=== PATIENT | female | born 1955 | race Hispanic/Latino ===

== ENCOUNTER 2019-04-03 10:59 | Inpatient (IN) | payer BC ==
[~2019-04-03] VITALS: Ht 154.9 cm; Wt 77.1 kg
[~2019-04-03 10:59] MED LIST: BENTYL10 MG PO; ULTRAM 50MG50 MG PO; ZOFRAN ODT4 MG PO
[2019-04-03] MEDS ORDERED: HYDRALAZINE HCL 20 MG/ML VIAL IV ONE (11:30)
[2019-04-03 11:56] LABS: BASOPHILS # (AUTO) 0.1 (0.0-0.1); EOSINOPHILS % 0.5 % (0.0-6.0); HEMATOCRIT 46.3 % (34.2-44.1); HEMOGLOBIN 15.2 g/dL (12.0-16.0); LYMPHOCYTES # (AUTO) 1.3 (1.0-3.2); LYMPHOCYTES % 15.6 % (18.0-39.1); MEAN CORPUSCULAR HEMOGLOBIN 27.8 pg (28-32); MEAN CORPUSCULAR HGB CONC 32.8 g/dL (31-35); MEAN CORPUSCULAR VOLUME 84.8 fL (81-99); MONOCYTES # (AUTO) 0.4 (0.2-0.8); MONOCYTES % 4.5 % (4.4-11.3); NEUTROPHILS # (AUTO) 6.4 (2.1-6.9); PLATELET COUNT 222 x10e3/uL (140-360); RED BLOOD COUNT 5.46 x10e6/uL (3.6-5.1); RED CELL DISTRIBUTION WIDTH 12.7 % (11.7-14.4)
[2019-04-03 12:15] LABS: BACTERIA,URINE RARE /HPF; EPITHELIAL CELLS,URINE RARE /LPF; WBC,URINE (MAN) 0-5 /HPF (0-5)
[2019-04-03 12:19] LABS: ALANINE AMINOTRANSFERASE 15 IU/L (0-55); ALBUMIN 3.7 g/dL (3.5-5.0); ALKALINE PHOSPHATASE 125 IU/L (40-150); ANION GAP 15.7 mmol/L (8-16); BLOOD UREA NITROGEN 12 mg/dL (7-26); BUN/CREATININE RATIO 16 (6-25); CALCIUM 9.5 mg/dL (8.4-10.2); CARBON DIOXIDE 24 mmol/L (22-29); CHLORIDE 104 mmol/L (98-107); CREATININE, SERUM 0.74 mg/dL (0.57-1.11); EST GLOMERULAR FILTRATION RATE > 60 ML/MIN (60-); GLUCOSE 99 mg/dL (74-118); POTASSIUM 3.7 mmol/L (3.5-5.1); SODIUM 140 mmol/L (136-145)
[2019-04-03 12:21] LABS: BILIRUBIN,URINE NEGATIVE (NEGATIVE); CLARITY,URINE CLEAR (CLEAR); COLOR,URINE YELLOW (YELLOW); KETONES,URINE NEGATIVE (NEGATIVE); LEUKOCYTE ESTERASE ,URINE NEGATIVE (NEGATIVE); NITRITE,URINE NEGATIVE (NEGATIVE); PROTEIN,URINE DIPSTICK NEGATIVE (NEGATIVE); URINE UROBILINOGEN 0.2 mg/dL (0.2 - 1)
--- NOTE | 2019-04-03 12:33 | Diagnostic Imaging Report ---
EXAMINATION: CHEST SINGLE (PORTABLE) INDICATION: Chest pain COMPARISON: None FINDINGS: LINES/TUBES:EKG leads overlie the chest. LUNGS:The lungs are well-inflated. Mild bibasilar subsegmental atelectasis. PLEURA:No pleural effusion or pneumothorax. MEDIASTINUM:The cardiomediastinal silhouette appears normal in size and shape. BONES/SOFT TISSUES:No acute osseous injury. ABDOMEN:No free air under the diaphragm. IMPRESSION: Mild bibasilar subsegmental atelectasis. No focal pneumonia or pulmonary edema. Signed by: Gianluca Sauer MD on 04/03/2019 12:30 PM
--- NOTE | 2019-04-03 12:34 | Diagnostic Imaging Report ---
CT BRAIN WO HISTORY: Left arm weakness and slurred speech COMPARISON: None. TECHNIQUE: Noncontrast axial scans were obtained from skull base to the vertex. Coronal and sagittal reconstructions obtained from the axial data. One or more of the following dose reduction techniques were used: Automated exposure control, adjustment of the mA and/or kV according to patient size, and/or utilization of iterative reconstruction technique. DISCUSSION: Scalp/Skull: Unremarkable. Brain sulci: Appropriate for patient's age. Ventricles: Normal in size and configuration. No hydrocephalus. Extra-axial spaces: No masses or fluid collections. Parenchyma: Small focal hypodensity in the right centrum semiovale could be due to age indeterminate ischemia. Otherwise, no mass, hemorrhage, or large vascular territory acute infarct. Dural sinuses: No abnormal densities. Sellar/Suprasellar region: Intact. Skull base: Intact. Incidental findings: Mild carotid siphon calcifications are present. IMPRESSION: 1. Focal hypodensity in the right centrum semiovale could be due to age indeterminate ischemia. 2. Otherwise, no acute intracranial abnormalities. Signed by: Dr. Nehemiah Blanca M.D. on 04/03/2019 12:31 PM
[2019-04-03 12:39] LABS: CHOL/HDL RATIO 3.5 (3.0-3.6)
[2019-04-03] MEDS ORDERED: HYDRALAZINE HCL 20 MG/ML VIAL IV STA (12:51)
[2019-04-03] MEDS ORDERED: ASPIRIN 325 MG TAB PO ONE (13:00)
[2019-04-03] MEDS ORDERED: HYDRALAZINE HCL 20 MG/ML VIAL IV PRN (13:00)
[2019-04-03] MEDS ORDERED: ONDANSETRON HCL INJ 2MG/ML 2ML 2 MG/ML VIAL IV PRN (13:00)
[2019-04-03] MEDS ORDERED: SODIUM CHLORIDE FLUSH 10 ML SYR INJ PRN (13:00)
[2019-04-03] MEDS: SODIUM CHLORIDE 0.9% 1000ML 1,000 ML IV SCH (13:21)
[2019-04-03] MEDS ORDERED: BROMPHENIR-PSE118 ML (14:18)
[2019-04-03] MEDS ORDERED: LOPRESSOR25 MG (14:18)
[2019-04-03] MEDS ORDERED: LOSARTAN POTASS50 MG (14:18)
--- NOTE | 2019-04-03 14:18 | NUR ---
MED REC REVIEWED WITH PT
[2019-04-03] MEDS ORDERED: GADOBENATE DIMEGLUMINE 1 ML IV ONE (14:21)
[2019-04-03] MEDS ORDERED: ACETAMINOPHEN 325 MG TAB PO ONE (14:30)
--- NOTE | 2019-04-03 18:42 | Diagnostic Imaging Report ---
History: Left-sided weakness, slurred speech Comparison studies: Head CT on 04/03/2019 Technique: Pre-contrast: Sagittal T2; axial T1-IR, SWI, DWI, T2 FLAIR Post-contrast: Axial, coronal and sagittal T1. Intravenous contrast: 16 cc of MultiHance Findings: Scalp: No abnormal signal. No masses. Bone marrow: Normal in signal intensity. Extra-axial: No masses, fluid collections or hemorrhage. Brain sulci: Appropriate for age. Ventricles: Normal in size . No hydrocephalus. Parenchyma: 1 cm acute nonhemorrhagic lacunar insults and vague restricted diffusion between them centered in the right deep frontal centrum semiovale correlate with the provided history of left weakness. No additional acute vascular insults. Vascular enhancement (due to stagnation of contrast) along the right convexity, given patient's symptoms, raises the possibility of a stenosing lesion in the right MCA territory (series 7, image 12 and series 8, image 12). Multiple, scattered, nonenhancing T2 FLAIR hyperintense foci in the supratentorial white matter are nonspecific small vessel ischemic changes. No masses, hemorrhage, or chronic vascular insults. Suprasellar region: No abnormalities. Craniocervical junction: No abnormalities. Patent foramen magnum. No Chiari one malformation.. Vessels: Normal flow-voids in the arteries and sinuses. IMPRESSION: 1. Focal nonhemorrhagic lacunar insults in the right centrum semiovale white matter may be insufficiency related. They correlate with the provided history of left weakness. Vascular enhancement along the right convexity raises the possibility of a stenosing lesion in the right MCA vascular territory (series 7, image 12, series 8, image 12). Recommend cervical and intracranial CTA for further evaluation. 2. No additional acute abnormalities. 3. Superimposed nonspecific mild supratentorial white matter small vessel ischemic changes. 4. Findings discussed with Dr. Nicolas on 04/03/2019 at 0638 hours Signed by: Dr. Daryl Grayson M.D. on 04/03/2019 6:39 PM
--- NOTE | 2019-04-03 20:33 | NUR ---
Call placed for Dr Simi Aldrich, patient requesting medication for sleep
[2019-04-03 20:48] VITALS: BP 166/97
--- NOTE | 2019-04-03 20:57 | NUR ---
Dr Simi Aldrich returned call, orders received
[2019-04-03] MEDS ORDERED: ZOLPIDEM TARTRATE 5 MG TAB PO ONE (21:00)
--- NOTE | 2019-04-03 21:05 | Diagnostic Imaging Report ---
History: Workup of acute infarct seen on same day brain MRI. Comparison studies:Brain MRI 04/03/2019. Technique: Axial images were obtained from the thoracic inlet. Coronal and sagittal images reconstructed from the axial data. Multiplanar MIP and volume rendered 3-D images of the [place] and carotid bulbs/carotid bifurcations were reformatted from the axial source data. Dose modulation, iterative reconstruction, and/or weight based adjustment of the mA/kV was utilized to reduce the radiation dose to as low as reasonably achievable. Intravenous contrast: 100 cc of Isovue-370. Findings: Neck CTA: If present, stenosis is calculated utilizing the NASCET method which calculates the degree of stenosis with reference to the normal lumen of the carotid artery distal to the stenosis. Aortic arch and origins of the great vessels: Mild scattered calcified plaque in the arch and at the origin of the right brachiocephalic trunk without stenosis. Common carotid arteries: Patent bilaterally and mildly tortuous without filling defects or stenosis. Carotid bulbs: Patent bilaterally with no (0%) stenosis by NASCET criteria. Mild nonstenotic calcified and soft plaque on the right. Internal carotid arteries: Patent and mildly tortuous bilaterally without filling defect or stenosis. Left internal carotid artery is slightly smaller than the left Vertebral arteries: Patent, no filling defect or stenosis. Intracranial CTA: Anterior circulation: No aneurysm or arterial vascular malformation identified. Internal carotid arteries: Moderate scattered calcified plaque throughout the bilateral cavernous and paraophthalmic segments without significant stenosis. The left internal carotid artery is congenitally smaller than the right. Middle cerebral arteries: The proximal right M1 MCA is occluded for a 5 mm segment. There is reconstituted flow via collaterals distally within the right MCA territory. Specifically, there is reconstituted flow within the distal right M1 MCA and right M2 MCA branches are also patent distal to the occlusion. Patent, no proximal branch occlusion or stenosis on the left. Anterior cerebral arteries: Patent, no proximal branch occlusion or stenosis. The left A1 segment is congenitally smaller than the right. Posterior circulation: Vertebral arteries: Patent bilaterally without filling defect or stenosis. Basilar artery: Patent without filling defect or stenosis. Posterior cerebral arteries: Patent, no proximal branch occlusion or stenosis. The right P1 segment is hypoplastic in the right PIPE STEM ALIGNER is supplied by a prominent right posterior communicating artery (right PIPE STEM ALIGNER origin). Anatomical variants: Anterior cerebral arteries: Hypoplastic left A1 segment. Acom: Patent. Pcoms: Right PIPE STEM ALIGNER origin. Not visualized on the left. Vertebral arteries: Left is dominant. Cervical spine: Minimal anterolisthesis of C4 on C5 and retrolisthesis of C5 on C6. Moderately degenerated C5-C6 and C6-C7 discs with disc osteophyte complexes which indent the thecal sac but do not result significant canal stenosis. Moderate multilevel facet arthrosis. Multilevel uncovertebral facet arthrosis result in multilevel foraminal stenosis which is moderate on the right at C3-C4, mild left at C4-C5, severe left and moderate right at C5-C6 and moderate left and mild right at C6-C7. Incidental findings: Calcified 3 mm right upper lobe granuloma. Dental caries with multifocal periodontal disease. IMPRESSION: Neck CTA 1. Patent carotid and vertebral arteries without stenosis. 2. No (0%) stenosis at the carotid bulbs bilaterally. Mild nonstenotic calcified plaque in the right carotid bulb. Intracranial CTA: 1. Proximal segmental right M1 MCA occlusion with good intact collateral circulation and reconstituted flow present distally within the M1 MCA beyond the occluded segment. 2. Calcified atherosclerosis in the carotid siphons without significant stenosis. Findings discussed with Dr. Macias at 9:00 PM on 04/03/2019 Signed by: Dr. Efrain Crum M.D. on 04/03/2019 9:02 PM
--- NOTE | 2019-04-03 21:05 | Diagnostic Imaging Report ---
History: Workup of acute infarct seen on same day brain MRI. Comparison studies:Brain MRI 04/03/2019. Technique: Axial images were obtained from the thoracic inlet. Coronal and sagittal images reconstructed from the axial data. Multiplanar MIP and volume rendered 3-D images of the [place] and carotid bulbs/carotid bifurcations were reformatted from the axial source data. Dose modulation, iterative reconstruction, and/or weight based adjustment of the mA/kV was utilized to reduce the radiation dose to as low as reasonably achievable. Intravenous contrast: 100 cc of Isovue-370. Findings: Neck CTA: If present, stenosis is calculated utilizing the NASCET method which calculates the degree of stenosis with reference to the normal lumen of the carotid artery distal to the stenosis. Aortic arch and origins of the great vessels: Mild scattered calcified plaque in the arch and at the origin of the right brachiocephalic trunk without stenosis. Common carotid arteries: Patent bilaterally and mildly tortuous without filling defects or stenosis. Carotid bulbs: Patent bilaterally with no (0%) stenosis by NASCET criteria. Mild nonstenotic calcified and soft plaque on the right. Internal carotid arteries: Patent and mildly tortuous bilaterally without filling defect or stenosis. Left internal carotid artery is slightly smaller than the left Vertebral arteries: Patent, no filling defect or stenosis. Intracranial CTA: Anterior circulation: No aneurysm or arterial vascular malformation identified. Internal carotid arteries: Moderate scattered calcified plaque throughout the bilateral cavernous and paraophthalmic segments without significant stenosis. The left internal carotid artery is congenitally smaller than the right. Middle cerebral arteries: The proximal right M1 MCA is occluded for a 5 mm segment. There is reconstituted flow via collaterals distally within the right MCA territory. Specifically, there is reconstituted flow within the distal right M1 MCA and right M2 MCA branches are also patent distal to the occlusion. Patent, no proximal branch occlusion or stenosis on the left. Anterior cerebral arteries: Patent, no proximal branch occlusion or stenosis. The left A1 segment is congenitally smaller than the right. Posterior circulation: Vertebral arteries: Patent bilaterally without filling defect or stenosis. Basilar artery: Patent without filling defect or stenosis. Posterior cerebral arteries: Patent, no proximal branch occlusion or stenosis. The right P1 segment is hypoplastic in the right ELECTRONIC SCALE TESTER is supplied by a prominent right posterior communicating artery (right ELECTRONIC SCALE TESTER origin). Anatomical variants: Anterior cerebral arteries: Hypoplastic left A1 segment. Acom: Patent. Pcoms: Right ELECTRONIC SCALE TESTER origin. Not visualized on the left. Vertebral arteries: Left is dominant. Cervical spine: Minimal anterolisthesis of C4 on C5 and retrolisthesis of C5 on C6. Moderately degenerated C5-C6 and C6-C7 discs with disc osteophyte complexes which indent the thecal sac but do not result significant canal stenosis. Moderate multilevel facet arthrosis. Multilevel uncovertebral facet arthrosis result in multilevel foraminal stenosis which is moderate on the right at C3-C4, mild left at C4-C5, severe left and moderate right at C5-C6 and moderate left and mild right at C6-C7. Incidental findings: Calcified 3 mm right upper lobe granuloma. Dental caries with multifocal periodontal disease. IMPRESSION: Neck CTA 1. Patent carotid and vertebral arteries without stenosis. 2. No (0%) stenosis at the carotid bulbs bilaterally. Mild nonstenotic calcified plaque in the right carotid bulb. Intracranial CTA: 1. Proximal segmental right M1 MCA occlusion with good intact collateral circulation and reconstituted flow present distally within the M1 MCA beyond the occluded segment. 2. Calcified atherosclerosis in the carotid siphons without significant stenosis. Findings discussed with Dr. Macias at 9:00 PM on 04/03/2019 Signed by: Dr. Efrain Crum M.D. on 04/03/2019 9:02 PM
[2019-04-03 21:49] LABS: PLATELET ESTIMATE ADEQUATE; PLATELET MORPHOLOGY COMMENT RARE EDTA CLUMPING; RBC MORPHOLOGY COMMENT NORMAL
[2019-04-03 22:24] VITALS: BP 174/57
[2019-04-03] MEDS ORDERED: SODIUM CHLORIDE 0.9% 100 ML ONE (23:17)
[2019-04-03] MEDS ORDERED: IOPAMIDOL 370 MG/ML 200 ML INFUS..BTL INJ ONE (23:17)
[2019-04-04] VITALS: BP 148/78
[2019-04-04] MEDS: SODIUM CHLORIDE 0.9% 1000ML 1,000 ML IV SCH ×2 (00:55→12:24)
--- NOTE | 2019-04-04 01:18 | History and Physical ---
This is a 64-year-old female patient presented to the emergency room with the high blood pressure. HISTORY OF PRESENT ILLNESS: Ms. Lucretia Carr is a 64-year-old female patient, who presented to the emergency room with the complaint of high blood pressure AND _ left side weakness. The patient was recently seen by as outpatient and blood pressure medicine was adjusted and ALSO [facility] emergency room. FOR TIA PAST MEDICAL HISTORY: Hypertension and hyperlipidemia. ALLERGIES: THE PATIENT IS ALLERGIC TO CODEINE AND HYDROCODONE. SOCIAL HISTORY: Denies smoking. Denies using alcohol. MEDICATIONS: The patient was on hydrocodone, metoprolol, and losartan. FAMILY HISTORY: Hypertension. REVIEW OF SYSTEMS: Multisystem review of system examination has been done. PHYSICAL EXAMINATION: T 98 , BP 170 /98 . RR 18 P 87 GENERAL: _NC , AT HEART: S1 and S2. Irregular. No murmur. ABDOMEN: Soft. Bowel sounds are present. NEUROLOGIC: LT SIDE WEAKNESS ADMITTING IMPRESSION/DIAGNOSES: CVA , ACCELERATED hypertension, transient ischemic attack, and possible right middle cerebral artery ischemic cerebrovascular accident, hyperlipidemia. PLAN: _ADMIT TO IMCU , ASA , LIPITOR , NUERO CONSULT AND WATCH . MRI has been done and we reviewed the report. MD CATHY Padilla/ROXANA /[id number] MTDD
[2019-04-04 03:15] VITALS: BP 136/83
[2019-04-04 04:00] VITALS: BP 110/75
[2019-04-04 06:22] LABS: BASOPHILS % 0.6 % (0.0-1.0); EOSINOPHILS % 0.3 % (0.0-6.0); HEMATOCRIT 42.5 % (34.2-44.1); HEMOGLOBIN 13.9 g/dL (12.0-16.0); LYMPHOCYTES # (AUTO) 1.1 (1.0-3.2); LYMPHOCYTES % 15.8 % (18.0-39.1); MEAN CORPUSCULAR HGB CONC 32.7 g/dL (31-35); MEAN CORPUSCULAR VOLUME 85.5 fL (81-99); MONOCYTES # (AUTO) 0.4 (0.2-0.8); MONOCYTES % 4.9 % (4.4-11.3); NEUTROPHILS # (AUTO) 5.6 (2.1-6.9); NEUTROPHILS % 77.8 % (38.7-80.0); PLATELET COUNT 306 x10e3/uL (140-360); RED BLOOD COUNT 4.97 x10e6/uL (3.6-5.1); RED CELL DISTRIBUTION WIDTH 12.8 % (11.7-14.4)
[2019-04-04 06:39] LABS: INR 0.85; PROTHROMBIN TIME 12.1 seconds (11.9-14.5)
[2019-04-04 06:46] LABS: ALANINE AMINOTRANSFERASE 14 IU/L (0-55); ALBUMIN 3.3 g/dL (3.5-5.0); ALBUMIN/GLOBULIN RATIO 1.1 (0.8-2.0); ALKALINE PHOSPHATASE 111 IU/L (40-150); ANION GAP 11.6 mmol/L (8-16); BLOOD UREA NITROGEN 10 mg/dL (7-26); BUN/CREATININE RATIO 15 (6-25); CARBON DIOXIDE 23 mmol/L (22-29); CHLORIDE 107 mmol/L (98-107); CREATININE, SERUM 0.67 mg/dL (0.57-1.11); EST GLOMERULAR FILTRATION RATE > 60 ML/MIN (60-); GLUCOSE 111 mg/dL (74-118); POTASSIUM 3.6 mmol/L (3.5-5.1); SODIUM 138 mmol/L (136-145)
[2019-04-04] MEDS ORDERED: ASPIRIN 325 MG TAB PO SCH (09:00)
[2019-04-04] MEDS ORDERED: CLOPIDOGREL BISULFATE 75 MG TAB PO SCH (09:00)
[2019-04-04] MEDS ORDERED: METOPROLOL TARTRATE 25 MG TAB PO SCH (09:00)
[2019-04-04] MEDS ORDERED: OLMESARTAN MEDOXOMIL 5 MG TABLET PO SCH (09:00)
--- NOTE | 2019-04-04 09:16 | Consultation ---
DATE OF CONSULTATION: 04/04/2019 CHIEF COMPLAINT: Left upper extremity motor neuron facial weakness. The patient had sudden onset of in the morning, presented to the emergency room, by afternoon was outside of the tPA window. She has a history of hypertension. She is a 64-year-old female was asked to come in by her coworkers weakness. SOCIAL HISTORY: No tobacco, alcohol, or drugs. FAMILY HISTORY: Hypertension. No history of diabetes. PHYSICAL EXAMINATION: VITAL SIGNS: Blood pressure is 140s/60s, heart rate is 87 and regular. She is afebrile at 98.2. HEENT: Extraocular muscles intact motor neuron facial weakness. Speech is dysarthric. There is no nuchal rigidity. EXTREMITIES: Left upper extremity and left lower extremity; left upper extremity is 3-to 2/5. Left lower extremity is 3/5. Her right side are 5/5 upper and lower. She is not ataxic and she has had some degree of hemineglect on the left side. ABDOMEN: Soft and nontender. CARDIOVASCULAR: Regular rate and rhythm. LUNGS: Clear to auscultation ASSESSMENT AND PLAN: I am seeing Ms. Carr for stroke MRI, carotid Duplex, echocardiogram. She was outside of a tPA window evaluation before discharge. I will also recommend Cardiology consultation. JULIOCESAR PATEL MD RR/MODL /[id number]
--- NOTE | 2019-04-04 09:25 | NUR ---
AT APPROX. 0915, PT NOTED WITH PROMINANT L. SIDE FACIAL DROOP, DEFICIT IN L. LEG STRENGTH AND L. ARM; INFORMATION REPORT TO DR. Tawnya SCHERER, BRAIN CT ORDERED AND PATIENT TRANSPORTED BY [facility]
--- NOTE | 2019-04-04 11:04 | Diagnostic Imaging Report ---
CT BRAIN WO HISTORY: Facial droop COMPARISON: CT, CTA head and MRI brain 04/03/2019 TECHNIQUE: Noncontrast axial scans were obtained from skull base to the vertex. Coronal and sagittal reconstructions obtained from the axial data. One or more of the following dose reduction techniques were used: Automated exposure control, adjustment of the mA and/or kV according to patient size, and/or utilization of iterative reconstruction technique. DISCUSSION: Scalp/Skull: Unremarkable. Brain sulci: Appropriate for patient's age. Ventricles: Normal in size and configuration. No hydrocephalus. Extra-axial spaces: No masses or fluid collections. Parenchyma: Hypodensity in the right centrum semiovale, more conspicuous than on previous examination, related to evolving subacute infarct. Otherwise, no mass, hemorrhage, or large vascular territory acute infarct. Dural sinuses: No abnormal densities. Sellar/Suprasellar region: Intact. Skull base: Intact. Incidental findings: Mild carotid siphon calcifications are present. IMPRESSION: 1. Evolving subacute infarct at the right centrum semiovale ovale, more conspicuous than on previous examination, no hemorrhage, midline shift or herniation. 2. No large cortical-based infarct. Signed by: DR Barak Santiago M.D. on 04/04/2019 11:01 AM
--- NOTE | 2019-04-04 13:30 | NUR ---
FAMILY NOW REQUESTING TRANSFER TO [facility] VS [facility]; TRANSFER TO [facility] INITIATED BY DR. GUARDADO
--- NOTE | 2019-04-04 14:12 | NUR ---
[facility] ACCEPTED PATIENT @1410; TRANSPORTED INITIATED AT 1317; [facility] ACCEPTED, DR. COATES ADMITTING; [facility] REPORT [phone], FAX [phone] ROOM [id number]
--- NOTE | 2019-04-04 14:18 | NUR ---
LEFT MESSAGE WITH DR. LEAL OFFICE INFORMING OF PATIENT FAMILY REQUEST TO GO TO [facility]
--- NOTE | 2019-04-04 16:17 | NUR ---
REPORT CALLED TO RAQUEL BALDERAS AT [facility]; ROOM 2250;
[2019-04-04] MEDS ORDERED: ATORVASTATIN 40 MG TAB PO SCH (21:00)
--- OUTSIDE RECORDS SUMMARY | 2019-04-07 12:50 | XMS REPORT ---
Author [facility] Address Unknown Phone Unavailable Care Team Providers Care Gut Dropper Name Role Phone RICK CANTOR Unavailable Unavailable Julia LEAL Unavailable Unavailable Payers Payer Name Policy Type Policy Number Effective Date Expiration Date Problems This patient has no known problems. Allergies, Adverse Reactions, Alerts Allergy Name Allergy Type Status Severity Reaction(s) Onset Date Inactive Date Treating Clinician Comments No Known Allergies DA Active U 2019-03-11 00:00:00 No Known Drug Intolerances DA Active U 2008-09-29 00:00:00 Medications This patient has no known medications. Results Test Description Test Time Test Comments Text Results Atomic Results Result Comments BASIC METABOLIC PANEL 2019-04-07 06:47:00 SODIUM (BEAKER) (test oirz=225) 140 meq/L 136-145 POTASSIUM (BEAKER) (test bsnt=084) 3.8 meq/L 3.5-5.1 CHLORIDE (BEAKER) (test jyex=581) 110 meq/L 98-107 CO2 (BEAKER) (test gvhi=570) 20 meq/L 22-29 BLOOD UREA NITROGEN (BEAKER) (test dbfk=625) 12 mg/dL 7-21 CREATININE (BEAKER) (test atxm=983) 0.61 mg/dL 0.57-1.25 GLUCOSE RANDOM (BEAKER) (test baea=021) 73 mg/dL 70-105 CALCIUM (BEAKER) (test imcc=004) 8.5 mg/dL 8.4-10.2 EGFR (BEAKER) (test uhcy=2644) INSUFFICIENT CLINICAL DATA TO CALCULATE ESTIMATED GFR. CBC (HEMOGRAM ONLY)2019-04-07 05:55:00* Test Item Value Reference Range Comments WHITE BLOOD CELL COUNT (BEAKER) (test neow=528) 6.5 K/ L 3.5-10.5 RED BLOOD CELL COUNT (BEAKER) (test ngre=025) 4.96 M/ L 3.93-5.22 HEMOGLOBIN (BEAKER) (test koux=197) 14.1 GM/DL 11.2-15.7 HEMATOCRIT (BEAKER) (test rwao=809) 42.7 % 34.1-44.9 MEAN CORPUSCULAR VOLUME (BEAKER) (test nqdl=809) 86.1 fL 79.4-94.8 MEAN CORPUSCULAR HEMOGLOBIN (BEAKER) (test nnqs=956) 28.4 pg 25.6-32.2 MEAN CORPUSCULAR HEMOGLOBIN CONC (BEAKER) (test rgul=242) 33.0 GM/DL 32.2-35.5 RED CELL DISTRIBUTION WIDTH (BEAKER) (test rrsa=514) 12.6 % 11.7-14.4 PLATELET COUNT (BEAKER) (test mqgy=040) 263 K/CU MM 150-450 MEAN PLATELET VOLUME (BEAKER) (test fwgn=446) 10.1 fL 9.4-12.3 NUCLEATED RED BLOOD CELLS (BEAKER) (test xshy=010) 0 /100 WBC 0-0 POCT-GLUCOSE [id number] 17:23:00* Test Item Value Reference Range Comments POC-GLUCOSE METER (BEAKER) (test ayny=8798) 82 mg/dL 70-110 : TESTED AT [address], [address]: Director Of Acquisition Marketing/Model Maker Apprentice [id number] for TSEGGAI, TSIGHEREDA POCT-GLUCOSE [id number] 12:04:00* Test Item Value Reference Range Comments POC-GLUCOSE METER (BEAKER) (test ucrx=1857) 84 mg/dL 70-110 : TESTED AT [address], [address]: Director Of Acquisition Marketing/Model Maker Apprentice [id number] for TSEGGAI, TSIGHEREDA POCT-GLUCOSE [id number] 11:07:00* Test Item Value Reference Range Comments POC-GLUCOSE METER (BEAKER) (test xzkt=4019) 79 mg/dL 70-110 : TESTED AT [address], [address]: Director Of Acquisition Marketing/Model Maker Apprentice [id number] for ALIYA PALOMINO POCT-GLUCOSE [id number] 18:15:00* Test Item Value Reference Range Comments POC-GLUCOSE METER (SHALA) (test yxbc=3647) 74 mg/dL 70-110 : TESTED AT [facility] [address] [facility], [address]: Director Of Acquisition Marketing/Model Maker Apprentice [id number] for DRU DARDEN, CTANGIO [id number] 16:40:00FINAL REPORT CLINICAL HISTORY: Neuro deficit, acute, stroke suspected TECHNIQUE: Initially, noncontrast head CT images were performed. Contiguous contrast-enhanced axial images through the neck followed by axial images through the head with coronal and sagittal reformations to assess the arterial circulation. 3-D reconstructions were performed using a volume rendered technique separately on a workstation. This exam was performed according to the departmental dose optimization program which includes automated exposure control, adjustment of the mA and/or kV according to the patient size, and/or use of an iterative reconstruction technique. Stenosis evaluation reported in compliance with NASCET criteria. COMPARISON: Outside noncontrast CT head 04/04/2019 FINDINGS: CTA head:Interval loss of pozo-white differentiation over a large region of the rig ht MCA territory. No hemorrhagic conversion. There is no hydrocephalus or midlin e shift. The skull is intact. Complete occlusion of the right MCA at the proxim al M1 segment. Distal branches are reconstituted from collaterals, with overall mildly decreased opacification on the right compared to left. Bilateral ACAs, le ft MCA, and bilateral farmer tree fruit and nut crops are unremarkable. There is a prominent right-sided P- comm. The major intradural venous sinuses are patent. CTA neck:Great vessel catracho gins: No occlusion or high-grade stenosis. Carotid arteries: No occlusion or hig h-grade stenosis. Vertebral arteries: No occlusion or high-grade stenosis. Mild degenerative changes of the cervical spine. Cervical soft tissues are unremarka ble. Visualized lung apices are clear. IMPRESSION:1.Large right MCA territory acute infarct without hemorrhagic conversion.2.Proximal right M1 occlusion. Col lateral flow in the distal branches with overall mildly decreased vascularity on the right compared to left MCA territories. These findings were discussed with the neurology resident on Neurology floor team on 04/05/2019 4:35 PM. Signed: Emely Robertson Verified Date/Time: 04/05/2019 16:40:37 , CAROTID, ANGIO 2019-04-05 16:40:00FINAL REPORT CLINICAL HISTORY: Neuro deficit, acute, stroke suspected TECHNIQUE: Initially, noncontrast head CT images were performed. Contiguous contrast-enhanced axial images through the neck followed by axial images through the head with coronal and sagittal reformations to assess the arterial circulation. 3-D reconstructions were performed using a volume rendered technique separately on a workstation. This exam was performed according to the departmental dose optimization program which includes automated exposure control, adjustment of the mA and/or kV according to the patient size, and/or use of an iterative reconstruction technique. Stenosis evaluation reported in compliance with NASCET criteria. COMPARISON: Outside noncontrast CT head 04/04/2019 FINDINGS: CTA head:Interval loss of pozo-white differentiation over a large region of the right MCA territory. No hemorrhagic conversion. There is no hydrocephalus or midline shift. The skull is intact. Complete occlusion of the right MCA at the proximal M1 segment. Distal branches are reconstituted from collaterals, with overall mildly decreased opacification on the right compared to left. Bilateral ACAs, left MCA, and bilateral farmer tree fruit and nut crops are unremarkable. There is a prominent right-sided P-comm. The major intradural venous sinuses are patent. CTA neck:Great vessel origins: No occlusion or high- grade stenosis. Carotid arteries: No occlusion or high-grade stenosis. Vertebral arteries: No occlusion or high-grade stenosis. Mild degenerative changes of the cervical spine. Cervical soft tissues are unremarkable. Visualized lung apices are clear. IMPRESSION:1.Large right MCA territory acute infarct without hemorrhagic conversion.2.Proximal right M1 occlusion. Col lateral flow in the distal branches with overall mildly decreased vascularity on the right compared to left MCA territories. These findings were discussed with the neurology resident on Neurology floor team on 04/05/2019 4:35 PM. Signed: padmaja Emely MDReport Verified Date/Time: 04/05/2019 16:40:37 [id number] 08:59:00* Test Item Value Reference Range Comments RPR SCREEN (BEAKER) (test ccbb=455) Nonreactive Nonreactive CBC W/PLT COUNT & AUTO [id number] 06:17:00* Test Item Value Reference Range Comments WHITE BLOOD CELL COUNT (BEAKER) (test bpvp=529) 6.6 K/ L 3.5-10.5 RED BLOOD CELL COUNT (BEAKER) (test vbyb=421) 5.09 M/ L 3.93-5.22 HEMOGLOBIN (BEAKER) (test iojp=231) 14.2 GM/DL 11.2-15.7 HEMATOCRIT (BEAKER) (test mmag=043) 44.5 % 34.1-44.9 MEAN CORPUSCULAR VOLUME (BEAKER) (test zfcq=468) 87.4 fL 79.4-94.8 MEAN CORPUSCULAR HEMOGLOBIN (BEAKER) (test cotv=629) 27.9 pg 25.6-32.2 MEAN CORPUSCULAR HEMOGLOBIN CONC (BEAKER) (test dmkd=124) 31.9 GM/DL 32.2-35.5 RED CELL DISTRIBUTION WIDTH (BEAKER) (test qwzl=865) 13.1 % 11.7-14.4 PLATELET COUNT (BEAKER) (test vdty=668) 328 K/CU MM 150-450 MEAN PLATELET VOLUME (BEAKER) (test ipdk=823) 10.4 fL 9.4-12.3 NUCLEATED RED BLOOD CELLS (BEAKER) (test ixxx=467) 0 /100 WBC 0-0 NEUTROPHILS RELATIVE PERCENT (BEAKER) (test efpt=877) 71 % LYMPHOCYTES RELATIVE PERCENT (BEAKER) (test sgkc=329) 20 % MONOCYTES RELATIVE PERCENT (BEAKER) (test jyfq=881) 8 % EOSINOPHILS RELATIVE PERCENT (BEAKER) (test sfmo=281) 1 % BASOPHILS RELATIVE PERCENT (BEAKER) (test gfvh=723) 1 % NEUTROPHILS ABSOLUTE COUNT (BEAKER) (test pusg=599) 4.69 K/ L 1.56-6.13 LYMPHOCYTES ABSOLUTE COUNT (BEAKER) (test phsg=974) 1.31 K/ L 1.18-3.74 MONOCYTES ABSOLUTE COUNT (BEAKER) (test sdlt=447) 0.50 K/ L 0.24-0.36 EOSINOPHILS ABSOLUTE COUNT (BEAKER) (test rcsl=029) 0.04 K/ L 0.04-0.36 BASOPHILS ABSOLUTE COUNT (BEAKER) (test rdpz=156) 0.04 K/ L 0.01-0.08 IMMATURE GRANULOCYTES-RELATIVE PERCENT (BEAKER) (test toff=8437) 0 % 0-1 TSH/FREE T4 IF [id number] 21:31:00* Test Item Value Reference Range Comments THYROID STIMULATING HORMONE (BEAKER) (test niqz=885) 0.78 uIU/mL 0.35-4.94 VITAMIN B12 AND [id number] 21:31:00* Test Item Value Reference Range Comments VITAMIN B12 (BEAKER) (test imsi=409) 582 pg/mL 213-816 FOLATE (BEAKER) (test tthf=238) 11.8 ng/mL >=7.0 HEMOGLOBIN [id number] 21:07:00* Test Item Value Reference Range Comments HEMOGLOBIN A1C (BEAKER) (test bamq=825) 5.2 % 4.3-6.1 TROPONIN [id number] 21:07:00* Test Item Value Reference Range Comments TROPONIN I (BEAKER) (test ocgt=136) < ng/mL 0.00-0.03 Troponin I (TnI) levels must be interpreted in the context of the presenting sym ptoms and the clinical findings. Elevated TnI levels indicate myocardial damage, but are not specific for ischemic heart disease. Elevated TnI levels are seen in patients with other cardiac conditions (including myocarditis and congestive h eart failure), and slight TnI elevations occur in patients with other conditions , including sepsis, renal failure, acidosis, acute neurological disease, and per sistent tachyarrhythmia.COMPREHENSIVE METABOLIC [id number] 21:04:00* Test Item Value Reference Range Comments TOTAL PROTEIN (BEAKER) (test mvba=064) 7.1 gm/dL 6.0-8.3 ALBUMIN (BEAKER) (test kmkn=3063) 4.1 g/dL 3.5-5.0 ALKALINE PHOSPHATASE (BEAKER) (test cuip=418) 125 U/L 40-150 BILIRUBIN TOTAL (BEAKER) (test dnxc=088) 1.0 mg/dL 0.2-1.2 SODIUM (BEAKER) (test skmd=690) 138 meq/L 136-145 POTASSIUM (BEAKER) (test yzrw=616) 3.8 meq/L 3.5-5.1 CHLORIDE (BEAKER) (test znfk=892) 107 meq/L 98-107 CO2 (BEAKER) (test bafn=028) 22 meq/L 22-29 BLOOD UREA NITROGEN (BEAKER) (test mfdj=738) 10 mg/dL 7-21 CREATININE (BEAKER) (test fpxg=568) 0.71 mg/dL 0.57-1.25 GLUCOSE RANDOM (BEAKER) (test hnts=677) 101 mg/dL 70-105 CALCIUM (BEAKER) (test uxmg=991) 9.1 mg/dL 8.4-10.2 AST (SGOT) (BEAKER) (test ebgu=057) 21 U/L 5-34 ALT (SGPT) (BEAKER) (test nbls=961) 20 U/L 6-55 EGFR (BEAKER) (test dbiy=8623) INSUFFICIENT CLINICAL DATA TO CALCULATE ESTIMATED GFR. LIPID [id number] 21:01:00* Test Item Value Reference Range Comments TRIGLYCERIDES (BEAKER) (test axoe=296) 96 mg/dL CHOLESTEROL (BEAKER) (test quke=761) 247 mg/dL HDL CHOLESTEROL (BEAKER) (test aqsi=218) 68 mg/dL LDL CHOLESTEROL CALCULATED (BEAKER) (test jelg=682) 160 mg/dL Triglyceride Reference Range: Low Risk <150 Borderline 150-199 High Risk 200-499 Very High Risk >=500Cholesterol Reference Range: Low Risk <200 Borderline 200-239 High Risk >240HDL Cholesterol Reference Range: Low Risk >=60 High Risk <40LDL Cholesterol Reference Range: Optimal <100 Near Optimal 100-129 Borderline 130-159 High 160-189 Very High >=190 CT BRAIN [id number] 10:44:00 [place] [address] Patient Name: CANELO SANTOS V MR #: [id number] : 1955 Age/Sex: 64/F Req #: [id number] Adm Physician: KIRBY LEAL MD Ordered by: JULIOCESAR PATEL MD Report #: [id number] Location: [facility] Room/Bed: [place] [address] Procedure: [id number] CT/ CT BRAIN WO Exam Date: 04/04/19 Exam Time: 949 REPORT STATUS: Signed CT BRAIN WO HISTORY: Facial droop COMPARISON: CT, CTA head and MRI brain 04/03/2019 TECHNIQUE: Noncontrast axial scans were obtained from skull base to the vertex. Coronal and sagittal reconstructions obtained from the axial data. One or more of the following dose reduction techniques were used: Automated ex posure control, adjustment of the mA and/or kV according to patient size, and/ or utilization of iterative reconstruction technique. DISCUSSION: Sc alp/Skull: Unremarkable. Brain sulci: Appropriate for patient's age. Ventric les: Normal in size and configuration. No hydrocephalus. Extra-axial spaces: No masses or fluid collections. Parenchyma: Hypodensity in the righ t centrum semiovale, more conspicuous than on previous examination, related to evolving subacute infarct. Otherwise, no mass, hemorrhage, or large vascular territory acute infarct. Dural sinuses: No abnormal densities. Sellar/Perdue prasellar region: Intact. Skull base: Intact. Incidental findings: Mild dowling tid siphon calcifications are present. IMPRESSION: 1. Evolving subacute infarct at the right centrum semiovale ovale, more conspicuous than on previou s examination, no hemorrhage, midline shift or herniation. 2. No large pia ical-based infarct. Signed by: DR Barak Santiago M.D. on 03/19 11:01 AM Dictated By: BARAK DAI MD 110 Transcribed By: JAVIER on 04/04/19 1101 COPY TO: JULIOCESAR PATEL MD CTA [id number] 20:32:[address], [place], [place] [address] Patient Name: CANELO SANTOS V MR #: [id number] : 1955 Age/Sex: 64/F Req #: [id number] Adm Physician: KIRBY LEAL MD Ordered by: DENISE SULLIVAN MD Report #: [id number] Location: [facility] Room/Bed: [place] [address] Procedure: [id number] CT/CTA NECK Exam Date: 04/03/19 Exam Time: 1900 REPORT STATUS: Signed History: Workup of acute infarct seen on same day brain MRI. Comparison studies:Brain MRI 1 06/04/2018. Technique: Axial images were obtained from the thoracic inlet . Coronal and sagittal images reconstructed from the axial data. Multiplanar M IP and volume rendered 3-D images of the iliamna of Acevedo and carotid bulbs/ carotid bifurcations were reformatted from the axial source data. Dose modulat ion, iterative reconstruction, and/or weight based adjustment of the mA/kV was utilized to reduce the radiation dose to as low as reasonably achievable. Intravenous contrast: 100 cc of Isovue-370. Findings: Neck CTA: If present, stenosis is calculated utilizing the NASCET method which calculates the degree of stenosis with reference to the normal lumen of the carotid art [place] distal to the stenosis. Aortic arch and origins of the great vessels: Mild scattered calcified plaque in the arch and at the origin of the right br achiocephalic trunk without stenosis. Common carotid arteries: Patent tod aterally and mildly tortuous without filling defects or stenosis. Carotid bu lbs: Patent bilaterally with no (0%) stenosis by NASCET criteria. Mild nonsten otic calcified and soft plaque on the right. Internal carotid arteries: Patent and mildly tortuous bilaterally without filling defect or stenosis. Left inte rnal carotid artery is slightly smaller than the left Vertebral arteries: Patent, no filling defect or stenosis. Intracranial CTA: Anterior circulation: No aneurysm or arterial vascular malformation identified. Internal carotid arteries: Moderate scattered calcified plaque throughout the bilateral cavernous and paraophthalmic segments without significant stenosis. The left internal carotid artery is congenitally smaller than the right. M iddle cerebral arteries: The proximal right M1 MCA is occluded for a 5 mm segm ent. There is reconstituted flow via collaterals distally within the right MCA territory. Specifically, there is reconstituted flow within the distal right M1 MCA and right M2 MCA branches are also patent distal to the occlusion. Arnett nt, no proximal branch occlusion or stenosis on the left. Anterior cerebral arteries: Patent, no proximal branch occlusion or stenosis. The left A1 segme nt is congenitally smaller than the right. Posterior circulation: Vert ebral arteries: Patent bilaterally without filling defect or stenosis. Basi lar artery: Patent without filling defect or stenosis. Posterior cerebral a rteries: Patent, no proximal branch occlusion or stenosis. The right P1 segmen t is hypoplastic in the right LABEL PASTER is supplied by a prominent right posterior c ommunicating artery (right LABEL PASTER origin). Anatomical variants: Anteri or cerebral arteries: Hypoplastic left A1 segment. Acom: Patent. Pcoms: Righ t LABEL PASTER origin. Not visualized on the left. Vertebral arteries: Left is do minant. Cervical spine: Minimal anterolisthesis of C4 on C5 and retrolis thesis of C5 on C6. Moderately degenerated C5-C6 and C6-C7 discs with disc ost eophyte complexes which indent the thecal sac but do not result significant ca nal stenosis. Moderate multilevel facet arthrosis. Multilevel uncovertebral fa cet arthrosis result in multilevel foraminal stenosis which is moderate on the right at C3-C4, mild left at C4-C5, severe left and moderate right at C5-C6 a nd moderate left and mild right at C6-C7. Incidental findings: Calcifi ed 3 mm right upper lobe granuloma. Dental caries with multifocal periodontal disease. IMPRESSION: Neck CTA 1. Patent carotid and vertebral arter ies without stenosis. 2. No (0%) stenosis at the carotid bulbs bilaterally. M ild nonstenotic calcified plaque in the right carotid bulb. Intracranial CTA: 1. Proximal segmental right M1 MCA occlusion with good intact collateral circulation and reconstituted flow present distally within the M1 MCA beyond the occluded segment. 2. Calcified atherosclerosis in the carotid siphons w ithout significant stenosis. Findings discussed with Dr. Macias at 9: 00 PM on 04/03/2019 Signed by: Dr. Yesi Estrada M.D. on 04/03/2019 9:02 P M Dictated By: YESI ESTRADA MD 01 Transcribed By: JAVIER on 04/03/192101 COPY TO: DENISE SULLIVAN MD CTA [id number] 20:32:00 [place] [address] Patient Name: CANELO SANTOS V MR #: [id number] : 1955 Age/Sex: 64/F Req #: [id number] Adm Physician: KIRBY LEAL MD Ordered by: DENISE SULLIVAN MD Report #: [id number] Location: [facility] Room/Bed: [place] [address] Procedure: [id number] CT/CTA BRAIN Exam Date: 04/03/19 Exam Time: 1900 REPORT STATUS: Signed History: [place] of acute infarct seen on same day brain MRI. Comparison studies:Brain MRI 04/03/2019. Technique: Axial images were obtained from the thoracic inle t. Coronal and sagittal images reconstructed from the axial data. Multiplanar MIP and volume rendered 3-D images of the iliamna of Acevedo and carotid bulbs /carotid bifurcations were reformatted from the axial source data. Dose modula tion, iterative reconstruction, and/or weight based adjustment of the mA/kV wa s utilized to reduce the radiation dose to as low as reasonably achievable. Intravenous contrast: 100 cc of Isovue-370. Findings: Neck CTA: If present, stenosis is calculated utilizing the NASCET method which calculates the degree of stenosis with reference to the normal lumen of the carotid ar thelma distal to the stenosis. Aortic arch and origins of the great vessels : Mild scattered calcified plaque in the arch and at the origin of the right b rachiocephalic trunk without stenosis. Common carotid arteries: Patent bi laterally and mildly tortuous without filling defects or stenosis. Carotid b ulbs: Patent bilaterally with no (0%) stenosis by NASCET criteria. Mild nonste notic calcified and soft plaque on the right. Internal carotid arteries: Paten t and mildly tortuous bilaterally without filling defect or stenosis. Left int ernal carotid artery is slightly smaller than the left Vertebral arteries : Patent, no filling defect or stenosis. Intracranial CTA: Anterior circulation: No aneurysm or arterial vascular malformation identified. Internal carotid arteries: Moderate scattered calcified plaque throughout the bilateral cavernous and paraophthalmic segments without significant stenosis. The left internal carotid artery is congenitally smaller than the right. Middle cerebral arteries: The proximal right M1 MCA is occluded for a 5 mm seg ment. There is reconstituted flow via collaterals distally within the right MC A territory. Specifically, there is reconstituted flow within the distal right M1 MCA and right M2 MCA branches are also patent distal to the occlusion. Pat ent, no proximal branch occlusion or stenosis on the left. Anterior cerebra l arteries: Patent, no proximal branch occlusion or stenosis. The left A1 segm ent is congenitally smaller than the right. Posterior circulation: Souleymane tebral arteries: Patent bilaterally without filling defect or stenosis. Bas ilar artery: Patent without filling defect or stenosis. Posterior cerebral arteries: Patent, no proximal branch occlusion or stenosis. The right P1 segme nt is hypoplastic in the right LABEL PASTER is supplied by a prominent right posterior communicating artery (right LABEL PASTER origin). Anatomical variants: Anter ior cerebral arteries: Hypoplastic left A1 segment. Acom: Patent. Pcoms: Rig ht LABEL PASTER origin. Not visualized on the left. Vertebral arteries: Left is d ominant. Cervical spine: Minimal anterolisthesis of C4 on C5 and retroli sthesis of C5 on C6. Moderately degenerated C5-C6 and C6-C7 discs with disc os teophyte complexes which indent the thecal sac but do not result significant c anal stenosis. Moderate multilevel facet arthrosis. Multilevel uncovertebral f acet arthrosis result in multilevel foraminal stenosis which is moderate on th e right at C3-C4, mild left at C4-C5, severe left and moderate right at C5-C6 and moderate left and mild right at C6-C7. Incidental findings: Calcif ied 3 mm right upper lobe granuloma. Dental caries with multifocal periodontal disease. IMPRESSION: Neck CTA 1. Patent carotid and vertebral nusrat justen without stenosis. 2. No (0%) stenosis at the carotid bulbs bilaterally. Mild nonstenotic calcified plaque in the right carotid bulb. Intracranial CTA: 1. Proximal segmental right M1 MCA occlusion with good intact collateral circulation and reconstituted flow present distally within the M1 MCA beyond the occluded segment. 2. Calcified atherosclerosis in the carotid siphons without significant stenosis. Findings discussed with Dr. Macias at 9 :00 PM on 04/03/2019 Signed by: Dr. Yesi Estrada M.D. on 04/03/2019 9:02 PM Dictated By: YESI ESTRADA MD 01 Transcribed By: JAVIER on 04/03/192101 COPY TO : DENISE SULLIVAN MD MRI BRAIN [id number] 18:23:00 [place] [address] Patient Name: CANELO SANTOS V MR #: [id number] : 1955 Age/Sex: 64/F Req #: [id number] Adm Physician: KIRBY LEAL MD Ordered by: DENISE SULLIVAN MD Report #: [id number] Location: [facility] Room/Bed: [place] [address] Procedure: [id number] MRI/MRI BRAIN WOW Exam Date: Exam Time: REPORT STATUS: Signed History: Left-sided weakness, slurred speech Comparison studies: Head CT on 04/03/2019 Techn ique: Pre-contrast: Sagittal T2; axial T1-IR, SWI, DWI, T2 FLAIR Post-contra st: Axial, coronal and sagittal T1. Intravenous contrast: 16 cc of MultiHance Findings: Scalp: No abnormal signal. No masses. Bone marrow: Normal in signal intensity. Extra-axial: No masses, fluid collections or hemorr isadora. Brain sulci: Appropriate for age. Ventricles: Normal in size . No h ydrocephalus. Parenchyma: 1 cm acute nonhemorrhagic lacunar insults and v ague restricted diffusion between them centered in the right deep frontal cent rum semiovale correlate with the provided history of left weakness. No additio nal acute vascular insults. Vascular enhancement (due to stagnation of contras t) along the right convexity, given patient's symptoms, raises the possibility of a stenosing lesion in the right MCA territory (series 7, image 12 and seri es 8, image 12). Multiple, scattered, nonenhancing T2 FLAIR hyperintense fo ci in the supratentorial white matter are nonspecific small vessel ischemic ch anges. No masses, hemorrhage, or chronic vascular insults. Suprasellar re gion: No abnormalities. Craniocervical junction: No abnormalities. Patent for amen magnum. No Chiari one malformation.. Vessels: Normal flow-voids in the arteries and sinuses. IMPRESSION: 1. Focal nonhemorrhagic lacunar in sults in the right centrum semiovale white matter may be insufficiency related . They correlate with the provided history of left weakness. Vascular enhancem ent along the right convexity raises the possibility of a stenosing lesion in the right MCA vascular territory (series 7, image 12, series 8, image 12). Rec ommend cervical and intracranial CTA for further evaluation. 2. No addit ional acute abnormalities. 3. Superimposed nonspecific mild supratentorial white matter small vessel ischemic changes. 4. Findings discussed with Dr. Sullivan on 04/03/2019 at 0638 hours Signed by: Dr. Daryl Mckay M.D. on 04/03/2019 6:39 PM Dictated By: DARYL MCKAY MD, MD Elec tronically Signed By: DARYL MCKAY MD, MD on 04/03/191838 Transcribed B y: JAVIER on 04/03/191838 COPY TO: DENISE SULLIVAN MD CHEST SINGLE (PORTABLE)2019-04-03 12:30:00 [place] [id number] [place] [address] Patient Name: CANELO SANTOS V MR #: [id number] : 1955 Age/Sex: 64/F Req #: [id number] Adm Physician: Ordered by: DENISE SULLIVAN MD Report #: [id number] Location: ER Room/Bed: Procedure: [id number] DX/CHEST SINGLE (PORTABLE) Exam Date: 04/03/19 Exam Time: 1200 REPORT STATUS: Signed EXAMINATION: CHEST SINGLE (PORTABLE) INDICATION: Chest pain COMP ARISON: None FINDINGS: LINES/TUBES:EKG leads overlie the chest. LUNGS:The lungs are well-inflated. Mild bibasilar subsegmental atelectasis. PLEURA:No pleural effusion or pneumothorax. MEDIASTINUM:The cardiomedi astinal silhouette appears normal in size and shape. BONES/SOFT TISSUES:No acute osseous injury. ABDOMEN:No free air under the diaphragm. IMPR ESSION: Mild bibasilar subsegmental atelectasis. No focal pneumonia or pulmon roberto edema. Signed by: Rajeev Hewitt MD on 04/03/2019 12:30 PM Dictated By: RAJEEV HEWITT MD 1230 Tr anscribed By: JAVIER on 04/03/19 1230 COPY TO: DENISE SULLIVAN MD CT BRAIN [id number] 12:28:00 [facility] [place] [address] Patient Name: CANELO SANTOS V MR #: [id number] : 1955 Age/Sex: 64/F Req #: [id number] Adm Physician: Ordered by: DENISE SULLIVAN MD Report #: [id number] Location: ER Room/Bed: Procedure: [id number] CT/CT BRAIN WO Exam Date: 04/03/19 Exam Time: 1200 REPORT STATUS: Signed CT BRAIN WO HISTORY: Left arm weakness and slurred speech COMPARISON: None. TECHNIQUE: Noncontrast axial scans were obtained from skull base to the vert ex. Coronal and sagittal reconstructions obtained from the axial data. One o r more of the following dose reduction techniques were used: Automated exposur e control, adjustment of the mA and/or kV according to patient size, and/or ut ilization of iterative reconstruction technique. DISCUSSION: Scalp/S kull: Unremarkable. Brain sulci: Appropriate for patient's age. Ventricles: Normal in size and configuration. No hydrocephalus. Extra-axial spaces: No ma sses or fluid collections. Parenchyma: Small focal hypodensity in t he right centrum semiovale could be due to age indeterminate ischemia. Other whiting, no mass, hemorrhage, or large vascular territory acute infarct. Dural sinuses: No abnormal densities. Sellar/Suprasellar region: Intact. Skull b ase: Intact. Incidental findings: Mild carotid siphon calcifications are prese nt. IMPRESSION: 1. Focal hypodensity in the right centrum semiovale coul d be due to age indeterminate ischemia. 2. Otherwise, no acute intracranial abnormalities. Signed by: Dr. Nehemiah Blanca M.D. on 04/03/2019 12: 31 PM Dictated By: NEHEMIAH BLANCA MD 1231 Transcribed By: JAVIER on 04/03/19 1231 CO PY TO: DENISE SULLIVAN MD B-TYPE NATRIURETIC [id number] 11:57:00* Test Item Value Reference Range Comments B-TYPE NATRIURETIC PEPTIDE (test code=BNP) 17.87 pgram/mL 0-100 URINALYSIS [id number] 11:37:00* Test Item Value Reference Range Comments UA COLOR (test code=COLU) YELLOW YELLOW UA APPEARANCE (test code=APPU) Cloudy CLEAR UA GLUCOSE DIPSTICK (test code=DGLUU) NEGATIVE mg/dL NEGATIVE UA BILIRUBIN DIPSTICK (test code=BILU) NEGATIVE mg/dL NEGATIVE UA KETONE DIPSTICK (test code=KETU) NEGATIVE mg/dL NEGATIVE UA SPECIFIC GRAVITY (test code=SGU) 1.025 1.001-1.035 UA BLOOD DIPSTICK (test code=PATRICK) 0.1 mg/dL (1+) mg/dL NEGATIVE UA PH DIPSTICK (test code=SARAH) 5.0 5.0-8.0 UA PROTEIN DIPSTICK (test code=PROU) NEGATIVE mg/dL NEGATIVE UA UROBILINIOGEN DIPSTICK (test code=URO) Normal mg/dL NEGATIVE UA NITRITE DIPSTICK (test code=INDY) NEGATIVE NEGATIVE UA LEUKOCYTE ESTERASE W REFLEX (test code=LEUUR) 500 Angela/uL (3+) Angela/uL NEGATIVE UA WBC (test code=WBCU) per HPF 0-5 UA RBC (test code=RBCU) per HPF 0-5 UA EPITHELIAL CELLS (test code=EPIU) per HPF Few UA BACTERIA (test code=BACU) per HPF NONE Urine Source? Clean CatchURINALYSIS [id number] 11:37:00* Test Item Value Reference Range Comments UA COLOR (test code=COLU) YELLOW YELLOW UA APPEARANCE (test code=APPU) Cloudy CLEAR UA GLUCOSE DIPSTICK (test code=DGLUU) NEGATIVE mg/dL NEGATIVE UA BILIRUBIN DIPSTICK (test code=BILU) NEGATIVE mg/dL NEGATIVE UA KETONE DIPSTICK (test code=KETU) NEGATIVE mg/dL NEGATIVE UA SPECIFIC GRAVITY (test code=SGU) 1.025 1.001-1.035 UA BLOOD DIPSTICK (test code=PATRICK) 0.1 mg/dL (1+) mg/dL NEGATIVE UA PH DIPSTICK (test code=SARAH) 5.0 5.0-8.0 UA PROTEIN DIPSTICK (test code=PROU) NEGATIVE mg/dL NEGATIVE UA UROBILINIOGEN DIPSTICK (test code=URO) Normal mg/dL NEGATIVE UA NITRITE DIPSTICK (test code=INDY) NEGATIVE NEGATIVE UA LEUKOCYTE ESTERASE W REFLEX (test code=LEUUR) 500 Angela/uL (3+) Angela/uL NEGATIVE UA WBC (test code=WBCU) 6-10 per HPF 0-5 UA RBC (test code=RBCU) 3-5 #/HPF 0-5 UA EPITHELIAL CELLS (test code=EPIU) MANY per HPF FEW UA BACTERIA (test code=BACU) FEW #/HPF NONE UA MUCUS (test code=MUCU) FEW #/LPF FEW Urine Source? Clean CatchBASIC METABOLIC [id number] 11:11:00* Test Item Value Reference Range Comments SODIUM (test code=NA) 142 mmol/L 136-145 POTASSIUM (test code=K) 3.7 mmol/L 3.5-5.1 CHLORIDE (test code=CL) 109.0 mmol/L 98-107 CARBON DIOXIDE (test code=CO2) 28.0 mmol/L 21-32 ANION GAP (test code=GAP) 8.7 10-20 GLUCOSE (test code=GLU) 96 mg/dL 74-106 BLOOD UREA NITROGEN (test code=BUN) 17 mg/dL 7-18 GLOMERULAR FILTRATION RATE (test code=GFR) > 60 mL/min >=60 Estimated GFR by using Modified MDRD formula.Chronic kidney disease is defined as either kidney damageor GFR <60 mL/min/1.73 m2 for >3 months. CREATININE (test code=CREAT) 0.90 mg/dL 0.55-1.02 Note change in reference range due to change in reagent. BUN/CREATININE RATIO (test code=BUN/CREA) 20.0 10-20 CALCIUM (test code=CA) 9.0 mg/dL 8.5-10.1 HEPATIC FUNCTION [id number] 11:11:00* Test Item Value Reference Range Comments TOTAL PROTEIN (test code=PROT) 7.7 gram/dL 6.4-8.2 ALBUMIN (test code=ALB) 3.5 g/dL 3.4-5.0 GLOBULIN (test code=GLOB) 4.2 gram/dL 2.7-4.2 ALBUMIN/GLOBULIN RATIO (test code=A/G) 0.8 0.75-1.50 BILIRUBIN TOTAL (test code=BILT) 0.50 mg/dL 0.0-1.0 BILIRUBIN DIRECT (test code=BILD) 0.17 mg/dL 0.0-0.20 SGOT/AST (test code=AST) 12 IUnit/L 15-37 SGPT/ALT (test code=ALT) 17 IUnit/L 12-78 ALKALINE PHOSPHATASE TOTAL (test code=ALKP) 126 IUnit/L 45-117 Note change in reference range due to change in reagent. [id number] 11:11:00* Test Item Value Reference Range Comments LIPASE (test code=LIP) 141 U/L 73.0-393.0 [id number] 11:11:00* Test Item Value Reference Range Comments TROPONIN-I (test code=TROPI) <0.015 ng/mL 0-0.045 PROTHROMBIN [id number] 11:00:00* Test Item Value Reference Range Comments PROTHROMBIN TIME PATIENT (test code=PTP) 11.1 seconds 9.0-14.0 INTERNATIONAL NORMAL RATIO (test code=INR) 0.9 0.8-1.2 The therapeutic range for oral anticoagulant therapy formost indications is an international normalized ratio (INR)of between 2.0 and 3.0. The recommended therapeutic INRrange for various clinical situations is listed below: Clinical Situation INR range Pulmonary e mbolism treatment (2.0-3.0)Venous thrombosis treatmentVenous thrombosis prophylaxis (high risk surgery)Prevention of systemic embolism from: Acute myocardial infarction Valvular heart disease Atrial fibrillation Mechanical prosthetic heart valves (2.5-3.5) IS PATIENT ON ANTICOAGULANTS? NTHROMBOPLASTIN TIME [id number] 11:00:00* Test Item Value Reference Range Comments THROMBOPLASTIN TIME PARTIAL (test code=PTT) 36.3 seconds 25.0-36.5 IS PATIENT ON ANTICOAGULANTS? N- CT HEAD/BRAIN W/O [id number] 10:58:00 Name: CANELO SANTOS [facility] : 1955 Age/S: 64 / F [address] [facility] Unit #: [id number] Loc: [place] [address] Phys: Fadi Savage MD Acct: [id number] Di s Date: Status: REG ER PHONE #: [phone] Exam Date: 03/11/2019 105 FAX #: [phone] Reason: left arm numbness EXAMS: CPT CODE: [id number] CT HEAD/BRAIN W/O CONT [id number] EXAM: CT of the head; INFORMATION: Hypertension, left arm numbness; TECHNIQUE AND FINDINGS: CT dose reduction protocol; The ventricles are symmetric and of normal diameter; normal width of basilar cisterns and sulci; normal pozo/white matter differentiation; no evidence of intra or e xtra-axial hemorrhage, mass lesion or midline shift. Bone windows sh ow no abnormalities. Imaged portions of the paranasal sinuses and mastoid air cells are well aerated. IMPRESSION: Normal CT scan of the head. Location code: [facility] Ila ctronically Signed by Ben Pérez on 2018 at 1058 Reported and signed by: Gee Pérez M.D. CC: Sherrell Savage MD Technologist:Curry Szymanski RT(R) CTDI: DLP: Trnscb Date/Time: 03/11/2019 (1058) Juwan Orig Print D/T: S: 03/11/2019 (0306) PAGE 1 Signed Report BASIC METABOLIC [id number] 10:55:00* Test Item Value Reference Range Comments SODIUM (test code=NA) 142 mmol/L 136-145 POTASSIUM (test code=K) 3.7 mmol/L 3.5-5.1 CHLORIDE (test code=CL) 109.0 mmol/L 98-107 CARBON DIOXIDE (test code=CO2) mmol/L 21-32 ANION GAP (test code=GAP) 10-20 GLUCOSE (test code=GLU) mg/dL 74-106 BLOOD UREA NITROGEN (test code=BUN) mg/dL 7-18 GLOMERULAR FILTRATION RATE (test code=GFR) mL/min >=60 CREATININE (test code=CREAT) mg/dL 0.55-1.02 BUN/CREATININE RATIO (test code=BUN/CREA) 10-20 CALCIUM (test code=CA) mg/dL 8.5-10.1 HEPATIC FUNCTION [id number] 10:55:00* Test Item Value Reference Range Comments TOTAL PROTEIN (test code=PROT) gram/dL 6.4-8.2 ALBUMIN (test code=ALB) g/dL 3.4-5.0 GLOBULIN (test code=GLOB) gram/dL 2.7-4.2 ALBUMIN/GLOBULIN RATIO (test code=A/G) 0.75-1.50 BILIRUBIN TOTAL (test code=BILT) mg/dL 0.0-1.0 BILIRUBIN DIRECT (test code=BILD) mg/dL 0.0-0.20 SGOT/AST (test code=AST) IUnit/L 15-37 SGPT/ALT (test code=ALT) IUnit/L 12-78 ALKALINE PHOSPHATASE TOTAL (test code=ALKP) IUnit/L 45-117 [id number] 10:55:00* Test Item Value Reference Range Comments LIPASE (test code=LIP) U/L 73.0-393.0 [id number] 10:55:00* Test Item Value Reference Range Comments TROPONIN-I (test code=TROPI) ng/mL 0-0.045 CBC W/O [id number] 10:51:00* Test Item Value Reference Range Comments WHITE BLOOD CELL (test code=WBC) 7.1 K/mm3 4.5-12.5 RED BLOOD CELL (test code=RBC) 5.45 mill/mm3 3.7-5.2 HEMOGLOBIN (test code=HGB) 15.2 gram/dL 11.5-15.5 HEMATOCRIT (test code=HCT) 48.3 % 36.0-46.0 MEAN CELL VOLUME (test code=MCV) 88.6 fL 80-98 MEAN CELL HGB (test code=MCH) 27.9 picogram 27.0-33.0 MEAN CELL HGB CONCETRATION (test code=MCHC) 31.5 gram/dL 33.0-36.0 RED CELL DISTRIBUTION WIDTH (test code=RDW) 12.7 % 11.6-16.2 PLATELET COUNT (test code=PLT) 317 K/mm3 150-450 MEAN PLATELET VOLUME (test code=MPV) 9.8 fL 6.7-11.0 CBC W/O [id number] 10:49:00* Test Item Value Reference Range Comments WHITE BLOOD CELL (test code=WBC) K/mm3 4.5-12.5 RED BLOOD CELL (test code=RBC) mill/mm3 3.7-5.2 HEMOGLOBIN (test code=HGB) 15.2 gram/dL 11.5-15.5 HEMATOCRIT (test code=HCT) % 36.0-46.0 MEAN CELL VOLUME (test code=MCV) fL 80-98 MEAN CELL HGB (test code=MCH) picogram 27.0-33.0 MEAN CELL HGB CONCETRATION (test code=MCHC) gram/dL 33.0-36.0 RED CELL DISTRIBUTION WIDTH (test code=RDW) % 11.6-16.2 PLATELET COUNT (test code=PLT) K/mm3 150-450 MEAN PLATELET VOLUME (test code=MPV) fL 6.7-11.0 - XR CHEST 1 [id number] 10:44:00 FAX: Sherrell Jara [phone] [place]: B St: REG Name: CANELO BRIDGES [facility] : [birth year] Age/S: 64/F [facility] Unit #: [id number] Loc: [place], [place] [address] Phys: Sherrell Savage MD Acct: [id number] Dis Date: Status: REG ER PHONE #: [phone] Exam Date: 03/11/2019 1024 FAX #: [phone] Reason: CHEST PAIN EXAMS: CPT CODE: [id number] XR CHEST 1 V [id number] EXAM: Chest X-ray, 1 view; CLINICAL HISTORY: Chest pain, hypertension; FINDINGS: The lungs are clear, no infiltrates, no edema; no effusions; no pneumot horax; normal cardiomediastinal silhouette. IMPRESSION: Normal chest x-ray. Location code: [facility] at 1044 Reported and signed by: Gee Pérez M.D. CC: Sherrell Savage MD Technologist: Carlos FUNES(Carli) Trnscrd Date/Time/By: 03/11/2019 (1044) : By: JoseGRW Orig Print D/T: S: 03/11/2019 (8821) PAGE 1 Signed Report
== END 2019-04-04 17:46 | disposition short-term general hospital (02) | DRG 65 ==
LOC: ER 10:59 → ERHOLD 12:56
PROVIDERS: ADMIT Internal Medicine; ATTEND Internal Medicine
DX: I63.511 Cerebral infarction due to unspecified occlusion or stenosis of right middle cerebral artery (principal); I16.1 Hypertensive emergency; G81.94 Hemiplegia, unspecified affecting left nondominant side; I10 Essential (primary) hypertension; E78.5 Hyperlipidemia, unspecified; R29.810 Facial weakness; R47.1 Dysarthria and anarthria; Z88.5 Allergy status to narcotic agent
CPT/HCPCS: 36415; 51700; 70450; 70496; 70498; 70553; 71045; 80053; 80061; 81001; 83735; 84100; 84484; 85025; 85610; 85730; 93005; 93306; 99285; J0360; J7030; J7050; Q9967

== ENCOUNTER 2020-08-08 16:10 | Inpatient (IN) | payer MEDICARE, BC ==
[~2020-08-08] VITALS: Ht 157.5 cm; Wt 50.5 kg
[~2020-08-08 16:10] MED LIST changes: +BROMPHENIR-PSE118 ML; +LOPRESSOR25 MG; +LOSARTAN POTASS50 MG
[2020-08-08 16:39] LABS: BASOPHILS # (AUTO) 0.1 (0.0-0.1); BASOPHILS % 0.8 % (0.0-1.0); HEMATOCRIT 33.7 % (34.2-44.1); HEMOGLOBIN 10.9 g/dL (12.0-16.0); LYMPHOCYTES # (AUTO) 1.4 (1.0-3.2); MEAN CORPUSCULAR HEMOGLOBIN 30.9 pg (28-32); MEAN CORPUSCULAR HGB CONC 32.3 g/dL (31-35); MEAN CORPUSCULAR VOLUME 95.5 fL (81-99); MONOCYTES # (AUTO) 0.2 (0.2-0.8); NEUTROPHILS # (AUTO) 4.4 (2.1-6.9); PLATELET COUNT 319 x10e3/uL (140-360); RED BLOOD COUNT 3.53 x10e6/uL (3.6-5.1)
[2020-08-08 17:00] LABS: ALANINE AMINOTRANSFERASE 6 IU/L (0-55); ALBUMIN 2.2 g/dL (3.5-5.0); ALBUMIN/GLOBULIN RATIO 0.7 (0.8-2.0); ALKALINE PHOSPHATASE 117 IU/L (40-150); ANION GAP 15.8 mmol/L (8-16); BLOOD UREA NITROGEN 9 mg/dL (7-26); BUN/CREATININE RATIO 16 (6-25); CALCIUM 8.2 mg/dL (8.4-10.2); CARBON DIOXIDE 25 mmol/L (22-29); CHLORIDE 104 mmol/L (98-107); CREATININE, SERUM 0.57 mg/dL (0.57-1.11); EST GLOMERULAR FILTRATION RATE > 60 ML/MIN (60-); GLUCOSE 69 mg/dL (74-118); SODIUM 142 mmol/L (136-145)
[2020-08-08 17:01] LABS: POTASSIUM 2.8 mmol/L (3.5-5.1)
[2020-08-08] MEDS ORDERED: POTASSIUM CHLORIDE 20 MEQ TAB CR PO STA (17:13)
[2020-08-08] MEDS ORDERED: POTASSIUM CHLORIDE 10MEQ/100ML 200 ML IV ONE (17:15)
[2020-08-08] MEDS ORDERED: IOPAMIDOL 370 MG/ML 200 ML INFUS..BTL INJ ONE (17:24)
[2020-08-08] MEDS ORDERED: SODIUM CHLORIDE 0.9% 50ML 50 ML ONE (17:24)
[2020-08-08 18:05] LABS: CLARITY,URINE SL CLOUDY (CLEAR); COLOR,URINE AMBER (YELLOW); KETONES,URINE 1+ (NEGATIVE); LEUKOCYTE ESTERASE ,URINE TRACE (NEGATIVE); NITRITE,URINE NEGATIVE (NEGATIVE); PROTEIN,URINE DIPSTICK 1+ (NEGATIVE); URINE UROBILINOGEN 2 mg/dL (0.2 - 1)
[2020-08-08 18:18] LABS: AMORPHOUS SEDIMENT,URINE MANY (FEW); BACTERIA,URINE MODERATE /HPF; EPITHELIAL CELLS,URINE RARE /LPF; URIC ACID CRYSTALS,URINE FEW (FEW); WBC,URINE (MAN) 0-5 /HPF (0-5)
[2020-08-08] MEDS ORDERED: NEURONTIN100 MG PO (18:45)
[2020-08-08] MEDS ORDERED: FOLIC ACID0.4 MG PO (18:45)
[2020-08-08] MEDS ORDERED: REMERON30 MG PO (18:45)
[2020-08-08] MEDS ORDERED: POTASSIUM CHLO10 ME1 PO (18:45)
[2020-08-08] MEDS ORDERED: CRESTOR10 MG PO (18:45)
[2020-08-08] MEDS: SODIUM CHLORIDE 0.9% 1000ML 1,000 ML IV SCH (22:30)
[2020-08-08] MEDS ORDERED: SODIUM CHLORIDE 0.9% 1000ML 1,000 ML IV ONE (23:15)
[2020-08-09] VITALS (13 sets, daily range): BP systolic 78–129; BP diastolic 48–93
[2020-08-09] MEDS: SODIUM CHLORIDE 0.9% 1000ML 1,000 ML IV SCH (00:24)
[2020-08-09] MEDS ORDERED: HYDRALAZINE HCL 20 MG/ML VIAL IV PRN (01:00)
[2020-08-09] MEDS ORDERED: ONDANSETRON HCL INJ 2MG/ML 2ML 2 MG/ML VIAL IV PRN (01:00)
[2020-08-09] MEDS ORDERED: ACETAMINOPHEN 325 MG TAB PO PRN (01:00)
[2020-08-09] MEDS ORDERED: DEXTROSE 50% SYRINGE 50 ML IV PRN (01:00)
[2020-08-09] MEDS ORDERED: POTASSIUM CHLORIDE 20 MEQ TAB CR PO PRN (01:00)
[2020-08-09] MEDS ORDERED: POLYETHYLENE GLYCOL 3350 17 GM PACK PO PRN (01:00)
[2020-08-09] MEDS ORDERED: DOCUSATE SODIUM 100 MG CAP PO PRN (01:00)
[2020-08-09] MEDS ORDERED: ALBUTEROL/IPRATROPIUM 3 ML NEB NEB PRN (01:00)
[2020-08-09] MEDS ORDERED: LIDOCAINE 4% PATCH TP PRN (01:00)
[2020-08-09] MEDS ORDERED: ASPIRIN81 MG PO (03:19)
[2020-08-09] MEDS: PANTOPRAZOLE SOD 40 MG TABEC PO SCH (07:30)
[2020-08-09 07:48] LABS: BASOPHILS # (AUTO) 0.1 (0.0-0.1); EOSINOPHILS % 0.2 % (0.0-6.0); HEMATOCRIT 29.6 % (34.2-44.1); HEMOGLOBIN 9.7 g/dL (12.0-16.0); LYMPHOCYTES # (AUTO) 1.1 (1.0-3.2); LYMPHOCYTES % 21.4 % (18.0-39.1); MEAN CORPUSCULAR HEMOGLOBIN 31.4 pg (28-32); MEAN CORPUSCULAR HGB CONC 32.8 g/dL (31-35); MEAN CORPUSCULAR VOLUME 95.8 fL (81-99); MONOCYTES # (AUTO) 0.3 (0.2-0.8); NEUTROPHILS # (AUTO) 3.7 (2.1-6.9); NEUTROPHILS % 72.2 % (38.7-80.0); PLATELET COUNT 310 x10e3/uL (140-360); RED BLOOD COUNT 3.09 x10e6/uL (3.6-5.1); RED CELL DISTRIBUTION WIDTH 16.5 % (11.7-14.4)
[2020-08-09 08:14] LABS: CHOL/HDL RATIO 3.3 (3.0-3.6); MAGNESIUM 1.6 MG/DL (1.3-2.1); PHOSPHORUS 2.2 MG/DL (2.3-4.7)
[2020-08-09 08:16] LABS: ALBUMIN 1.8 g/dL (3.5-5.0); ALBUMIN/GLOBULIN RATIO 0.7 (0.8-2.0); ALKALINE PHOSPHATASE 106 IU/L (40-150); BLOOD UREA NITROGEN 5 mg/dL (7-26); BUN/CREATININE RATIO 11 (6-25); CALCIUM 7.3 mg/dL (8.4-10.2); CARBON DIOXIDE 18 mmol/L (22-29); CHLORIDE 115 mmol/L (98-107); CREATININE, SERUM 0.46 mg/dL (0.57-1.11); EST GLOMERULAR FILTRATION RATE > 60 ML/MIN (60-); GLUCOSE 62 mg/dL (74-118); SODIUM 142 mmol/L (136-145)
[2020-08-09 08:24] LABS: ALANINE AMINOTRANSFERASE < 6 IU/L (0-55)
[2020-08-09 08:28] LABS: CREATINE KINASE MB 0.4 ng/mL (0-5.0)
[2020-08-09 08:34] LABS: THYROID STIMULATING HORMONE 1.401 uIU/mL (0.350-4.940)
[2020-08-09] MEDS ORDERED: SODIUM CHLORIDE 0.9% 50ML 50 ML ONE ×2 (10:18→18:31)
[2020-08-09] MEDS ORDERED: GADOBENATE DIMEGLUMINE 1 ML IV ONE (10:19)
[2020-08-09] MEDS ORDERED: SODIUM CHLORIDE 0.9% 500ML 500 ML IV ONE ×2 (11:41→11:45)
[2020-08-09] MEDS: DEXTROSE 5%/0.9% SOD CHL 1,000 ML IV SCH (11:45)
[2020-08-09] MEDS ORDERED: SODIUM CHLORIDE 0.9% IV ONE (11:45)
[2020-08-09] MEDS ORDERED: SODIUM PHOSPHATE IN 0.9 % NACL 15 MMOL in SODIUM CHLORIDE 0.9% 250ML 250 ML IV ONE ×2 (12:00)
[2020-08-09] MEDS: MEGACE 400MG/ 10ML CUP PO SCH (12:00)
[2020-08-09] MEDS: MIDODRINE 2.5 MG TAB PO SCH ×2 (12:13→16:00)
[2020-08-09] MEDS: PIPERACILLIN/TAZOBAC 3.375 GM in SODIUM CHLORIDE 0.9% 50ML 50 ML IV SCH ×2 (14:00→22:11)
[2020-08-09] MEDS: BALSAM PERU/CASTOR OIL 60 GM OINT...G. TP SCH (15:00)
[2020-08-09 15:16] LABS: CREATINE KINASE MB 0.6 ng/mL (0-5.0)
[2020-08-09] MEDS ORDERED: ENOXAPARIN SOD INJ 40 MG/0.4 ML SYR SC SCH (17:00)
[2020-08-09] MEDS ORDERED: LORAZEPAM INJ 2 MG/ML VIAL ONE (17:10)
[2020-08-09] MEDS ORDERED: SODIUM CHLORIDE 0.9% 1000ML 2,000 ML IV ONE (17:15)
[2020-08-09] MEDS ORDERED: LORAZEPAM INJ 2 MG/ML VIAL IV ONE (17:15)
[2020-08-09 17:25] LABS: CREATINE KINASE MB 0.8 ng/mL (0-5.0)
[2020-08-09] MEDS ORDERED: KEPPRA250 MG PO (17:45)
[2020-08-09] MEDS ORDERED: KEPPRA500 MG PO (17:45)
[2020-08-09] MEDS ORDERED: ASPIRIN 81 MG CHEW TAB PO ONE (18:00)
[2020-08-09] MEDS ORDERED: IOPAMIDOL 370 MG/ML 200 ML INFUS..BTL INJ ONE (18:31)
[2020-08-09] MEDS ORDERED: NOREPINEPHRINE 8 MG/D5W 250 ML 250 ML IV PRN (18:45)
[2020-08-09] MEDS ORDERED: ASPIRIN 325 MG TAB PO ONE (19:45)
[2020-08-09] MEDS: LEVETIRACETAM 500MG/5ML VIAL 500 MG in SODIUM CHLORIDE 0.9% 100 ML 100 ML IV SCH (20:17)
[2020-08-09] MEDS: ATORVASTATIN 20 MG TAB PO SCH (20:41)
[2020-08-09] MEDS ORDERED: LEVETIRACETAM 500 MG/5 ML VIAL IV ONE (20:44)
[2020-08-09] MEDS ORDERED: SODIUM CHLORIDE 0.9% 100 ML ONE (20:44)
[2020-08-09 21:22] LABS: CREATINE KINASE MB 0.9 ng/mL (0-5.0)
[2020-08-10] VITALS (24 sets, daily range): BP systolic 89–125; BP diastolic 54–87
[2020-08-10] MEDS: DEXTROSE 5%/0.9% SOD CHL 1,000 ML IV SCH
[2020-08-10 05:20] LABS: BASOPHILS # (AUTO) 0.1 (0.0-0.1); BASOPHILS % 0.9 % (0.0-1.0); HEMOGLOBIN 9.8 g/dL (12.0-16.0); LYMPHOCYTES % 9.1 % (18.0-39.1); MEAN CORPUSCULAR HEMOGLOBIN 31.2 pg (28-32); MEAN CORPUSCULAR HGB CONC 32.7 g/dL (31-35); MEAN CORPUSCULAR VOLUME 95.5 fL (81-99); MONOCYTES # (AUTO) 0.5 (0.2-0.8); MONOCYTES % 4.2 % (4.4-11.3); NEUTROPHILS # (AUTO) 9.7 (2.1-6.9); NEUTROPHILS % 85.3 % (38.7-80.0); PLATELET COUNT 358 x10e3/uL (140-360); RED BLOOD COUNT 3.14 x10e6/uL (3.6-5.1); RED CELL DISTRIBUTION WIDTH 16.9 % (11.7-14.4)
[2020-08-10 05:39] LABS: ALBUMIN 1.7 g/dL (3.5-5.0); ALBUMIN/GLOBULIN RATIO 0.6 (0.8-2.0); ALKALINE PHOSPHATASE 101 IU/L (40-150); ANION GAP 9.8 mmol/L (8-16); BLOOD UREA NITROGEN < 5 mg/dL (7-26); CALCIUM 7.1 mg/dL (8.4-10.2); CARBON DIOXIDE 17 mmol/L (22-29); CHLORIDE 117 mmol/L (98-107); CREATININE, SERUM 0.57 mg/dL (0.57-1.11); EST GLOMERULAR FILTRATION RATE > 60 ML/MIN (60-); GLUCOSE 262 mg/dL (74-118); SODIUM 141 mmol/L (136-145)
[2020-08-10 05:41] LABS: ALANINE AMINOTRANSFERASE < 6 IU/L (0-55); BUN/CREATININE RATIO 9 (6-25); POTASSIUM 2.8 mmol/L (3.5-5.1)
[2020-08-10] MEDS: PIPERACILLIN/TAZOBAC 3.375 GM in SODIUM CHLORIDE 0.9% 50ML 50 ML IV SCH ×3 (06:16→22:38)
[2020-08-10] MEDS: POTASSIUM CHLORIDE 20MEQ/100ML 100 ML IV SCH ×3 (07:34→11:54)
[2020-08-10] MEDS: PANTOPRAZOLE SOD 40 MG TABEC PO SCH (07:34)
[2020-08-10] MEDS: BALSAM PERU/CASTOR OIL 60 GM OINT...G. TP SCH (07:45)
[2020-08-10] MEDS: MIDODRINE 2.5 MG TAB PO SCH ×3 (08:00→18:25)
[2020-08-10] MEDS: ASPIRIN 81 MG CHEW TAB PO SCH (09:00)
[2020-08-10] MEDS: MEGACE 400MG/ 10ML CUP PO SCH (09:00)
[2020-08-10] MEDS ORDERED: LACTATED RINGER'S 1,000 ML INJ ONE (09:30)
[2020-08-10] MEDS: LEVETIRACETAM 500MG/5ML VIAL 500 MG in SODIUM CHLORIDE 0.9% 100 ML 100 ML IV SCH ×2 (11:55→18:25)
[2020-08-10] MEDS ORDERED: SIMVASTATIN 40 MG TAB PO SCH (21:00)
[2020-08-10] MEDS: ATORVASTATIN 20 MG TAB PO SCH (21:14)
[2020-08-10] MEDS ORDERED: SODIUM CHLORIDE 0.9% 100 ML ONE (21:16)
[2020-08-10] MEDS ORDERED: IOPAMIDOL 370 MG/ML 200 ML INFUS..BTL INJ ONE (21:16)
[2020-08-11] VITALS (21 sets, daily range): BP systolic 85–128; BP diastolic 65–97
[2020-08-11] MEDS: PIPERACILLIN/TAZOBAC 3.375 GM in SODIUM CHLORIDE 0.9% 50ML 50 ML IV SCH ×3 (05:40→21:35)
[2020-08-11] MEDS: DICYCLOMINE HCL 10 MG CAP PO SCH ×4 (05:54→23:59)
[2020-08-11 06:00] LABS: BASOPHILS # (AUTO) 0.1 (0.0-0.1); BASOPHILS % 0.9 % (0.0-1.0); EOSINOPHILS % 0.1 % (0.0-6.0); HEMATOCRIT 31.5 % (34.2-44.1); HEMOGLOBIN 10.4 g/dL (12.0-16.0); LYMPHOCYTES # (AUTO) 1.2 (1.0-3.2); MEAN CORPUSCULAR HEMOGLOBIN 31.1 pg (28-32); MEAN CORPUSCULAR VOLUME 94.3 fL (81-99); MONOCYTES # (AUTO) 0.5 (0.2-0.8); MONOCYTES % 4.7 % (4.4-11.3); NEUTROPHILS # (AUTO) 9.4 (2.1-6.9); PLATELET COUNT 323 x10e3/uL (140-360); RED BLOOD COUNT 3.34 x10e6/uL (3.6-5.1); RED CELL DISTRIBUTION WIDTH 17.3 % (11.7-14.4)
[2020-08-11 06:36] LABS: ALANINE AMINOTRANSFERASE 7 IU/L (0-55); ALBUMIN 1.7 g/dL (3.5-5.0); ALBUMIN/GLOBULIN RATIO 0.6 (0.8-2.0); ALKALINE PHOSPHATASE 101 IU/L (40-150); ANION GAP 10.3 mmol/L (8-16); BLOOD UREA NITROGEN < 5 mg/dL (7-26); CALCIUM 7.4 mg/dL (8.4-10.2); CARBON DIOXIDE 18 mmol/L (22-29); CHLORIDE 117 mmol/L (98-107); CREATININE, SERUM 0.53 mg/dL (0.57-1.11); EST GLOMERULAR FILTRATION RATE > 60 ML/MIN (60-); GLUCOSE 125 mg/dL (74-118); POTASSIUM 3.3 mmol/L (3.5-5.1); SODIUM 142 mmol/L (136-145)
[2020-08-11 06:38] LABS: BUN/CREATININE RATIO 9 (6-25)
[2020-08-11] MEDS ORDERED: SODIUM CHLORIDE 0.9% 1000ML 1,000 ML IV SCH (07:30)
[2020-08-11] MEDS: BALSAM PERU/CASTOR OIL 60 GM OINT...G. TP SCH (08:10)
[2020-08-11] MEDS: MEGACE 400MG/ 10ML CUP PO SCH (09:00)
[2020-08-11] MEDS: ASPIRIN 81 MG CHEW TAB PO SCH (09:33)
[2020-08-11] MEDS: MIDODRINE 2.5 MG TAB PO SCH ×3 (09:33→16:07)
[2020-08-11] MEDS: PANTOPRAZOLE 40 MG 10ML VIAL IV SCH (12:38)
[2020-08-11] MEDS: LEVETIRACETAM 500MG/5ML VIAL 500 MG in SODIUM CHLORIDE 0.9% 100 ML 100 ML IV SCH ×2 (12:38→16:07)
[2020-08-11] MEDS: LACTATED RINGER'S 1,000 ML INJ SCH (12:39)
[2020-08-12] VITALS (20 sets, daily range): BP systolic 88–124; BP diastolic 49–85
[2020-08-12] MEDS: LACTATED RINGER'S 1,000 ML INJ SCH ×3 (00:36→17:32)
[2020-08-12] MEDS ORDERED: DIPHENOXYLATE/ATROPINE TAB PO STA (01:40)
[2020-08-12] MEDS ORDERED: DIPHENOXYLATE/ATROPINE TAB ONE (01:55)
[2020-08-12] MEDS: MELATONIN 5 MG TABLET PO PRN (02:00)
[2020-08-12 05:11] LABS: BASOPHILS # (AUTO) 0.1 (0.0-0.1); BASOPHILS % 0.9 % (0.0-1.0); EOSINOPHILS % 0.1 % (0.0-6.0); HEMATOCRIT 29.2 % (34.2-44.1); LYMPHOCYTES % 12.4 % (18.0-39.1); MEAN CORPUSCULAR HEMOGLOBIN 31.7 pg (28-32); MEAN CORPUSCULAR HGB CONC 34.2 g/dL (31-35); MEAN CORPUSCULAR VOLUME 92.7 fL (81-99); MONOCYTES # (AUTO) 0.4 (0.2-0.8); MONOCYTES % 4.9 % (4.4-11.3); NEUTROPHILS # (AUTO) 6.6 (2.1-6.9); NEUTROPHILS % 81.5 % (38.7-80.0); PLATELET COUNT 287 x10e3/uL (140-360); RED BLOOD COUNT 3.15 x10e6/uL (3.6-5.1); RED CELL DISTRIBUTION WIDTH 17.4 % (11.7-14.4)
[2020-08-12] MEDS: DICYCLOMINE HCL 10 MG CAP PO SCH ×3 (05:58→17:32)
[2020-08-12] MEDS: PIPERACILLIN/TAZOBAC 3.375 GM in SODIUM CHLORIDE 0.9% 50ML 50 ML IV SCH ×3 (05:58→22:00)
[2020-08-12 06:15] LABS: ALANINE AMINOTRANSFERASE 12 IU/L (0-55); ALBUMIN 1.6 g/dL (3.5-5.0); ALBUMIN/GLOBULIN RATIO 0.7 (0.8-2.0); ALKALINE PHOSPHATASE 97 IU/L (40-150); ANION GAP 9.5 mmol/L (8-16); CALCIUM 7.1 mg/dL (8.4-10.2); CARBON DIOXIDE 18 mmol/L (22-29); CHLORIDE 115 mmol/L (98-107); CREATININE, SERUM 0.52 mg/dL (0.57-1.11); EST GLOMERULAR FILTRATION RATE > 60 ML/MIN (60-); GLUCOSE 126 mg/dL (74-118); SODIUM 140 mmol/L (136-145)
[2020-08-12 06:18] LABS: BUN/CREATININE RATIO 10 (6-25)
[2020-08-12 06:19] LABS: BLOOD UREA NITROGEN < 5 mg/dL (7-26); POTASSIUM 2.5 mmol/L (3.5-5.1)
[2020-08-12] MEDS ORDERED: POTASSIUM CHLORIDE 20MEQ/100ML 300 ML IV ONE (06:30)
[2020-08-12] MEDS: BALSAM PERU/CASTOR OIL 60 GM OINT...G. TP SCH (08:47)
[2020-08-12] MEDS: LEVETIRACETAM 500MG/5ML VIAL 500 MG in SODIUM CHLORIDE 0.9% 100 ML 100 ML IV SCH ×2 (08:49→17:32)
[2020-08-12] MEDS: PANTOPRAZOLE 40 MG 10ML VIAL IV SCH (08:50)
[2020-08-12] MEDS: MIDODRINE 2.5 MG TAB PO SCH ×3 (08:50→17:33)
[2020-08-12] MEDS: ASPIRIN 81 MG CHEW TAB PO SCH (08:50)
[2020-08-12] MEDS ORDERED: BUPIVACAINE HCL 0.5% INJ 30 ML VIAL INJ ONE (12:58)
[2020-08-12 12:59] LABS: ALANINE AMINOTRANSFERASE 18 IU/L (0-55); ALBUMIN 1.6 g/dL (3.5-5.0); ALBUMIN/GLOBULIN RATIO 0.7 (0.8-2.0); ALKALINE PHOSPHATASE 113 IU/L (40-150); BLOOD UREA NITROGEN < 5 mg/dL (7-26); CALCIUM 7.2 mg/dL (8.4-10.2); CARBON DIOXIDE 20 mmol/L (22-29); CHLORIDE 116 mmol/L (98-107); EST GLOMERULAR FILTRATION RATE > 60 ML/MIN (60-); GLUCOSE 126 mg/dL (74-118); SODIUM 140 mmol/L (136-145)
[2020-08-12 13:00] LABS: BUN/CREATININE RATIO 10 (6-25)
[2020-08-12] MEDS ORDERED: HEPARIN SOD/SOD CHLORIDE 1,000 ML ONE (13:22)
[2020-08-12] MEDS ORDERED: ALBUMIN 5% 0.05 GM/ML BTL IV ONE (13:30)
[2020-08-12] MEDS ORDERED: SUGAMMADEX SODIUM 200 MG/2 ML VIAL IV ONE (13:41)
[2020-08-12] MEDS ORDERED: LIDOCAINE HCL 2% LOCAL INJ 5 ML SDV VIAL INJ ONE (14:03)
[2020-08-12] MEDS ORDERED: ONDANSETRON HCL INJ 2MG/ML 2ML 2 MG/ML VIAL ONE (14:03)
[2020-08-12] MEDS ORDERED: POVIDONE IODINE 0.05% 0.05 % ML PO ONE (14:03)
[2020-08-12] MEDS ORDERED: PROPOFOL IV EMULSION 10 MG/ML 20 ML VIAL ONE (14:03)
[2020-08-12] MEDS ORDERED: SEVOFLURANE INHAL SOLN 250 ML PEN BTL ONE (14:03)
[2020-08-12] MEDS ORDERED: TRAMADOL HCL 50 MG TAB PO PRN (14:30)
[2020-08-12] MEDS: MORPHINE SULFATE INJ 4 MG/ML INJ 1ML IV PRN (23:00)
[2020-08-13] VITALS (17 sets, daily range): BP systolic 92–117; BP diastolic 50–67
[2020-08-13] MEDS: LACTATED RINGER'S 1,000 ML INJ SCH ×2 (01:30→13:47)
[2020-08-13 04:56] LABS: BASOPHILS % 0.4 % (0.0-1.0); EOSINOPHILS % 0.4 % (0.0-6.0); HEMOGLOBIN 8.3 g/dL (12.0-16.0); LYMPHOCYTES # (AUTO) 0.9 (1.0-3.2); LYMPHOCYTES % 17.6 % (18.0-39.1); MEAN CORPUSCULAR HGB CONC 33.2 g/dL (31-35); MEAN CORPUSCULAR VOLUME 93.3 fL (81-99); MONOCYTES # (AUTO) 0.3 (0.2-0.8); MONOCYTES % 5.2 % (4.4-11.3); NEUTROPHILS % 76.2 % (38.7-80.0); PLATELET COUNT 235 x10e3/uL (140-360); RED BLOOD COUNT 2.68 x10e6/uL (3.6-5.1); RED CELL DISTRIBUTION WIDTH 17.4 % (11.7-14.4)
[2020-08-13 05:23] LABS: ALANINE AMINOTRANSFERASE 38 IU/L (0-55); ALBUMIN 2.4 g/dL (3.5-5.0); ALBUMIN/GLOBULIN RATIO 1.6 (0.8-2.0); ALKALINE PHOSPHATASE 85 IU/L (40-150); ANION GAP 10.9 mmol/L (8-16); BLOOD UREA NITROGEN < 5 mg/dL (7-26); CALCIUM 7.2 mg/dL (8.4-10.2); CARBON DIOXIDE 19 mmol/L (22-29); CHLORIDE 115 mmol/L (98-107); CREATININE, SERUM 0.53 mg/dL (0.57-1.11); EST GLOMERULAR FILTRATION RATE > 60 ML/MIN (60-); GLUCOSE 188 mg/dL (74-118); SODIUM 142 mmol/L (136-145)
[2020-08-13 05:29] LABS: BUN/CREATININE RATIO 9 (6-25)
[2020-08-13 05:33] LABS: POTASSIUM 2.9 mmol/L (3.5-5.1)
[2020-08-13] MEDS: DICYCLOMINE HCL 10 MG CAP PO SCH ×4 (06:00→18:00)
[2020-08-13] MEDS: PIPERACILLIN/TAZOBAC 3.375 GM in SODIUM CHLORIDE 0.9% 50ML 50 ML IV SCH ×3 (06:00→22:00)
[2020-08-13] MEDS ORDERED: DIPHENOXYLATE/ATROPINE TAB PO ONE (06:00)
[2020-08-13] MEDS ORDERED: POTASSIUM CHLORIDE 20MEQ/100ML 200 ML IV ONE (06:15)
[2020-08-13] MEDS: BALSAM PERU/CASTOR OIL 60 GM OINT...G. TP SCH (09:30)
[2020-08-13] MEDS: PANTOPRAZOLE 40 MG 10ML VIAL IV SCH (09:30)
[2020-08-13] MEDS: LEVETIRACETAM 500MG/5ML VIAL 500 MG in SODIUM CHLORIDE 0.9% 100 ML 100 ML IV SCH ×2 (09:32→18:00)
[2020-08-13] MEDS ORDERED: FUROSEMIDE 20 MG TAB PO ONE (13:00)
[2020-08-13] MEDS: MAGNESIUM SULFATE 2GM/50ML 50 ML IV SCH ×2 (13:47→13:48)
[2020-08-13] MEDS: MIDODRINE HCL 5 MG TABLET PO SCH ×2 (13:47→13:48)
[2020-08-13] MEDS: ASPIRIN 81 MG CHEW TAB PO SCH (13:47)
[2020-08-13] MEDS ORDERED: MIDODRINE HCL 5 MG TABLET PO SCH (16:00)
[2020-08-13] MEDS ORDERED: MIDODRINE 2.5 MG TAB PO SCH (16:00)
[2020-08-14] VITALS (17 sets, daily range): BP systolic 89–125; BP diastolic 57–90
[2020-08-14] MEDS: DICYCLOMINE HCL 10 MG CAP PO SCH ×5 (06:00→23:39)
[2020-08-14] MEDS: PIPERACILLIN/TAZOBAC 3.375 GM in SODIUM CHLORIDE 0.9% 50ML 50 ML IV SCH ×3 (06:00→22:27)
[2020-08-14 06:12] LABS: BASOPHILS % 0.6 % (0.0-1.0); EOSINOPHILS # (AUTO) 0.1 (0.0-0.4); EOSINOPHILS % 1.7 % (0.0-6.0); HEMATOCRIT 24.5 % (34.2-44.1); HEMOGLOBIN 8.5 g/dL (12.0-16.0); LYMPHOCYTES # (AUTO) 0.9 (1.0-3.2); LYMPHOCYTES % 19.6 % (18.0-39.1); MEAN CORPUSCULAR HGB CONC 34.7 g/dL (31-35); MEAN CORPUSCULAR VOLUME 92.1 fL (81-99); MONOCYTES # (AUTO) 0.3 (0.2-0.8); MONOCYTES % 5.8 % (4.4-11.3); NEUTROPHILS # (AUTO) 3.4 (2.1-6.9); NEUTROPHILS % 72.1 % (38.7-80.0); PLATELET COUNT 202 x10e3/uL (140-360); RED BLOOD COUNT 2.66 x10e6/uL (3.6-5.1); RED CELL DISTRIBUTION WIDTH 17.6 % (11.7-14.4)
[2020-08-14] MEDS: LACTATED RINGER'S 1,000 ML INJ SCH ×2 (06:24→07:00)
[2020-08-14 06:39] LABS: ALANINE AMINOTRANSFERASE 50 IU/L (0-55); ALBUMIN/GLOBULIN RATIO 1.2 (0.8-2.0); ALKALINE PHOSPHATASE 119 IU/L (40-150); ANION GAP 9.3 mmol/L (8-16); BLOOD UREA NITROGEN < 5 mg/dL (7-26); BUN/CREATININE RATIO 9 (6-25); CALCIUM 7.2 mg/dL (8.4-10.2); CARBON DIOXIDE 20 mmol/L (22-29); CHLORIDE 114 mmol/L (98-107); CREATININE, SERUM 0.53 mg/dL (0.57-1.11); EST GLOMERULAR FILTRATION RATE > 60 ML/MIN (60-); GLUCOSE 158 mg/dL (74-118); POTASSIUM 3.3 mmol/L (3.5-5.1); SODIUM 140 mmol/L (136-145)
[2020-08-14 06:59] LABS: MAGNESIUM 2.1 MG/DL (1.3-2.1); PHOSPHORUS 0.8 MG/DL (2.3-4.7)
[2020-08-14] MEDS: PANTOPRAZOLE 40 MG 10ML VIAL IV SCH (08:27)
[2020-08-14] MEDS: MIDODRINE HCL 5 MG TABLET PO SCH ×3 (08:27→16:22)
[2020-08-14] MEDS: BALSAM PERU/CASTOR OIL 60 GM OINT...G. TP SCH (08:27)
[2020-08-14] MEDS: LEVETIRACETAM 500MG/5ML VIAL 500 MG in SODIUM CHLORIDE 0.9% 100 ML 100 ML IV SCH ×2 (08:27→16:22)
[2020-08-14] MEDS: ASPIRIN 81 MG CHEW TAB PO SCH (08:27)
[2020-08-14] MEDS: MORPHINE SULFATE INJ 4 MG/ML INJ 1ML IV PRN (08:40)
[2020-08-14] MEDS: ONDANSETRON HCL INJ 2MG/ML 2ML 2 MG/ML VIAL IV PRN ×2 (08:40→13:11)
[2020-08-14] MEDS ORDERED: POTASSIUM CHLORIDE 10MEQ EA PO ONE (10:30)
[2020-08-14] MEDS: METOCLOPRAMIDE HCL 10 MG/2ML VIAL IV SCH ×3 (13:10→23:39)
[2020-08-14] MEDS ORDERED: POTASSIUM CHLORIDE 20MEQ/100ML 100 ML IV ONE (14:15)
[2020-08-14] MEDS ORDERED: POTASSIUM CHLORIDE 20MEQ/100ML 100 ML ONE (14:39)
[2020-08-15] VITALS (17 sets, daily range): BP systolic 82–108; BP diastolic 47–66
[2020-08-15] MEDS: LACTATED RINGER'S 1,000 ML INJ SCH (02:46)
[2020-08-15 04:53] LABS: BASOPHILS % 0.6 % (0.0-1.0); EOSINOPHILS # (AUTO) 0.1 (0.0-0.4); EOSINOPHILS % 1.7 % (0.0-6.0); HEMATOCRIT 23.2 % (34.2-44.1); HEMOGLOBIN 7.7 g/dL (12.0-16.0); LYMPHOCYTES % 18.9 % (18.0-39.1); MEAN CORPUSCULAR HEMOGLOBIN 30.8 pg (28-32); MEAN CORPUSCULAR HGB CONC 33.2 g/dL (31-35); MEAN CORPUSCULAR VOLUME 92.8 fL (81-99); MONOCYTES # (AUTO) 0.3 (0.2-0.8); MONOCYTES % 5.8 % (4.4-11.3); NEUTROPHILS # (AUTO) 3.9 (2.1-6.9); NEUTROPHILS % 72.6 % (38.7-80.0); PLATELET COUNT 170 x10e3/uL (140-360); RED CELL DISTRIBUTION WIDTH 17.7 % (11.7-14.4)
[2020-08-15 05:12] LABS: IRON 50 ug/dL (50-170); TRANSFERRIN < 70 mg/dL (180-382)
[2020-08-15 05:27] LABS: ALANINE AMINOTRANSFERASE 57 IU/L (0-55); ALBUMIN 1.7 g/dL (3.5-5.0); ALBUMIN/GLOBULIN RATIO 1.1 (0.8-2.0); ALKALINE PHOSPHATASE 133 IU/L (40-150); ANION GAP 6.9 mmol/L (8-16); CALCIUM 7.2 mg/dL (8.4-10.2); CARBON DIOXIDE 21 mmol/L (22-29); CHLORIDE 117 mmol/L (98-107); CREATININE, SERUM 0.52 mg/dL (0.57-1.11); GLUCOSE 69 mg/dL (74-118); POTASSIUM 3.9 mmol/L (3.5-5.1); SODIUM 141 mmol/L (136-145)
[2020-08-15 05:41] LABS: BLOOD UREA NITROGEN < 5 mg/dL (7-26); BUN/CREATININE RATIO 10 (6-25)
[2020-08-15] MEDS: PIPERACILLIN/TAZOBAC 3.375 GM in SODIUM CHLORIDE 0.9% 50ML 50 ML IV SCH ×3 (06:05→22:06)
[2020-08-15] MEDS: METOCLOPRAMIDE HCL 10 MG/2ML VIAL IV SCH ×4 (06:05→23:50)
[2020-08-15] MEDS: DICYCLOMINE HCL 10 MG CAP PO SCH ×4 (06:05→23:50)
[2020-08-15] MEDS: ONDANSETRON HCL INJ 2MG/ML 2ML 2 MG/ML VIAL IV PRN ×2 (06:38→12:02)
[2020-08-15] MEDS: MIDODRINE HCL 5 MG TABLET PO SCH ×3 (07:54→17:39)
[2020-08-15] MEDS ORDERED: SODIUM CHLORIDE 0.9% 250ML 250 ML IV ONE (08:15)
[2020-08-15] MEDS ORDERED: ACETAMINOPHEN 325 MG TAB PO ONE (08:15)
[2020-08-15] MEDS ORDERED: FUROSEMIDE INJ 10 MG/ML 2 ML VIAL IV ONE ×2 (08:15→12:30)
[2020-08-15] MEDS: LEVETIRACETAM 500MG/5ML VIAL 500 MG in SODIUM CHLORIDE 0.9% 100 ML 100 ML IV SCH ×2 (08:55→17:39)
[2020-08-15] MEDS: ASPIRIN 81 MG CHEW TAB PO SCH (08:55)
[2020-08-15] MEDS: BALSAM PERU/CASTOR OIL 60 GM OINT...G. TP SCH (08:55)
[2020-08-15] MEDS: ALBUMIN 25% 25GM 100ML 0.25 GM/ML BTL IV SCH ×3 (08:55→22:03)
[2020-08-15] MEDS: PANTOPRAZOLE 40 MG 10ML VIAL IV SCH (08:55)
[2020-08-15] MEDS ORDERED: MORPHINE SULFATE INJ 4 MG/ML INJ 1ML IV PRN (12:15)
[2020-08-15] MEDS ORDERED: MORPHINE SULFATE INJ 2 MG/ML SYR IV PRN (12:15)
[2020-08-15] MEDS: MEGACE 400MG/ 10ML CUP PO SCH (12:39)
[2020-08-15] MEDS: ENOXAPARIN SOD INJ 40 MG/0.4 ML SYR SC SCH (17:39)
[2020-08-15] MEDS: MELATONIN 5 MG TABLET PO PRN (22:03)
[2020-08-16] VITALS (29 sets, daily range): BP systolic 63–108; BP diastolic 45–64
[2020-08-16 04:45] LABS: BASOPHILS % 0.4 % (0.0-1.0); EOSINOPHILS # (AUTO) 0.1 (0.0-0.4); EOSINOPHILS % 2.1 % (0.0-6.0); HEMATOCRIT 24.4 % (34.2-44.1); HEMOGLOBIN 8.5 g/dL (12.0-16.0); LYMPHOCYTES # (AUTO) 0.9 (1.0-3.2); LYMPHOCYTES % 18.2 % (18.0-39.1); MEAN CORPUSCULAR HEMOGLOBIN 30.8 pg (28-32); MEAN CORPUSCULAR HGB CONC 34.8 g/dL (31-35); MEAN CORPUSCULAR VOLUME 88.4 fL (81-99); MONOCYTES # (AUTO) 0.3 (0.2-0.8); MONOCYTES % 6.6 % (4.4-11.3); NEUTROPHILS # (AUTO) 3.5 (2.1-6.9); NEUTROPHILS % 72.5 % (38.7-80.0); PLATELET COUNT 131 x10e3/uL (140-360); RED BLOOD COUNT 2.76 x10e6/uL (3.6-5.1); RED CELL DISTRIBUTION WIDTH 18.5 % (11.7-14.4)
[2020-08-16 05:09] LABS: ALANINE AMINOTRANSFERASE 40 IU/L (0-55); ALBUMIN 2.8 g/dL (3.5-5.0); ALBUMIN/GLOBULIN RATIO 2.8 (0.8-2.0); ALKALINE PHOSPHATASE 95 IU/L (40-150); ANION GAP 9.9 mmol/L (8-16); CALCIUM 7.4 mg/dL (8.4-10.2); CARBON DIOXIDE 23 mmol/L (22-29); CHLORIDE 116 mmol/L (98-107); CREATININE, SERUM 0.59 mg/dL (0.57-1.11); EST GLOMERULAR FILTRATION RATE > 60 ML/MIN (60-); GLUCOSE 75 mg/dL (74-118); SODIUM 146 mmol/L (136-145)
[2020-08-16 05:12] LABS: BUN/CREATININE RATIO 8 (6-25)
[2020-08-16] MEDS: METOCLOPRAMIDE HCL 10 MG/2ML VIAL IV SCH ×3 (05:30→16:57)
[2020-08-16] MEDS: DICYCLOMINE HCL 10 MG CAP PO SCH ×3 (05:30→16:57)
[2020-08-16] MEDS: PIPERACILLIN/TAZOBAC 3.375 GM in SODIUM CHLORIDE 0.9% 50ML 50 ML IV SCH ×3 (05:30→22:00)
[2020-08-16 05:40] LABS: BLOOD UREA NITROGEN < 5 mg/dL (7-26)
[2020-08-16 05:41] LABS: POTASSIUM 2.9 mmol/L (3.5-5.1)
[2020-08-16] MEDS ORDERED: POTASSIUM CHLORIDE 20MEQ/100ML 300 ML IV ONE (06:00)
[2020-08-16] MEDS ORDERED: POTASSIUM CHLORIDE 20MEQ/100ML 300 ML ONE (06:10)
[2020-08-16] MEDS: ASPIRIN 81 MG CHEW TAB PO SCH (08:21)
[2020-08-16] MEDS: MIDODRINE HCL 5 MG TABLET PO SCH ×3 (08:21→15:57)
[2020-08-16] MEDS: PANTOPRAZOLE 40 MG 10ML VIAL IV SCH (08:21)
[2020-08-16] MEDS: BALSAM PERU/CASTOR OIL 60 GM OINT...G. TP SCH (08:22)
[2020-08-16] MEDS: LEVETIRACETAM 500MG/5ML VIAL 500 MG in SODIUM CHLORIDE 0.9% 100 ML 100 ML IV SCH ×2 (08:28→16:25)
[2020-08-16] MEDS: MEGACE 400MG/ 10ML CUP PO SCH ×2 (08:35→11:44)
[2020-08-16] MEDS: ENOXAPARIN SOD INJ 40 MG/0.4 ML SYR SC SCH (16:25)
[2020-08-17] VITALS (25 sets, daily range): BP systolic 64–88; BP diastolic 46–62
[2020-08-17] MEDS: DICYCLOMINE HCL 10 MG CAP PO SCH ×4 (01:00→17:22)
[2020-08-17] MEDS: METOCLOPRAMIDE HCL 10 MG/2ML VIAL IV SCH ×4 (01:00→17:22)
[2020-08-17 05:33] LABS: BASOPHILS % 0.6 % (0.0-1.0); EOSINOPHILS # (AUTO) 0.1 (0.0-0.4); EOSINOPHILS % 2.3 % (0.0-6.0); HEMATOCRIT 25.9 % (34.2-44.1); LYMPHOCYTES # (AUTO) 1.2 (1.0-3.2); LYMPHOCYTES % 24.2 % (18.0-39.1); MEAN CORPUSCULAR HEMOGLOBIN 30.8 pg (28-32); MEAN CORPUSCULAR HGB CONC 34.7 g/dL (31-35); MEAN CORPUSCULAR VOLUME 88.7 fL (81-99); MONOCYTES # (AUTO) 0.3 (0.2-0.8); MONOCYTES % 6.4 % (4.4-11.3); NEUTROPHILS # (AUTO) 3.2 (2.1-6.9); NEUTROPHILS % 66.3 % (38.7-80.0); PLATELET COUNT 148 x10e3/uL (140-360); RED BLOOD COUNT 2.92 x10e6/uL (3.6-5.1); RED CELL DISTRIBUTION WIDTH 18.3 % (11.7-14.4)
[2020-08-17 05:53] LABS: ANION GAP 9.1 mmol/L (8-16); BLOOD UREA NITROGEN < 5 mg/dL (7-26); CALCIUM 7.4 mg/dL (8.4-10.2); CARBON DIOXIDE 24 mmol/L (22-29); CHLORIDE 115 mmol/L (98-107); CREATININE, SERUM 0.56 mg/dL (0.57-1.11); EST GLOMERULAR FILTRATION RATE > 60 ML/MIN (60-); GLUCOSE 71 mg/dL (74-118); POTASSIUM 3.1 mmol/L (3.5-5.1); SODIUM 145 mmol/L (136-145)
[2020-08-17] MEDS: PIPERACILLIN/TAZOBAC 3.375 GM in SODIUM CHLORIDE 0.9% 50ML 50 ML IV SCH ×3 (06:00→22:09)
[2020-08-17 06:11] LABS: BUN/CREATININE RATIO 9 (6-25)
[2020-08-17] MEDS: BALSAM PERU/CASTOR OIL 60 GM OINT...G. TP SCH (08:06)
[2020-08-17] MEDS: MIDODRINE HCL 5 MG TABLET PO SCH ×4 (08:06→17:22)
[2020-08-17] MEDS: ASPIRIN 81 MG CHEW TAB PO SCH (08:06)
[2020-08-17] MEDS: MEGACE 400MG/ 10ML CUP PO SCH (08:06)
[2020-08-17] MEDS: PANTOPRAZOLE 40 MG 10ML VIAL IV SCH (08:17)
[2020-08-17] MEDS: LEVETIRACETAM 500MG/5ML VIAL 500 MG in SODIUM CHLORIDE 0.9% 100 ML 100 ML IV SCH ×2 (08:17→17:22)
[2020-08-17] MEDS: ENOXAPARIN SOD INJ 40 MG/0.4 ML SYR SC SCH (17:22)
[2020-08-17 17:40] LABS: FREE T4 (FREE THYROXINE) 0.73 ng/dL (0.8-1.8); THYROID STIMULATING HORMONE 2.249 uIU/mL (0.350-4.940)
[2020-08-18] VITALS (39 sets, daily range): BP systolic 64–94; BP diastolic 45–70
[2020-08-18] MEDS: METOCLOPRAMIDE HCL 10 MG/2ML VIAL IV SCH ×4 (00:18→16:42)
[2020-08-18 05:47] LABS: BASOPHILS % 0.8 % (0.0-1.0); EOSINOPHILS # (AUTO) 0.1 (0.0-0.4); EOSINOPHILS % 1.5 % (0.0-6.0); HEMATOCRIT 25.8 % (34.2-44.1); HEMOGLOBIN 8.8 g/dL (12.0-16.0); LYMPHOCYTES # (AUTO) 1.4 (1.0-3.2); LYMPHOCYTES % 29.6 % (18.0-39.1); MEAN CORPUSCULAR HEMOGLOBIN 30.7 pg (28-32); MEAN CORPUSCULAR HGB CONC 34.1 g/dL (31-35); MEAN CORPUSCULAR VOLUME 89.9 fL (81-99); MONOCYTES # (AUTO) 0.4 (0.2-0.8); MONOCYTES % 8.2 % (4.4-11.3); NEUTROPHILS # (AUTO) 2.9 (2.1-6.9); NEUTROPHILS % 59.7 % (38.7-80.0); PLATELET COUNT 147 x10e3/uL (140-360); RED BLOOD COUNT 2.87 x10e6/uL (3.6-5.1); RED CELL DISTRIBUTION WIDTH 18.3 % (11.7-14.4)
[2020-08-18] MEDS: MIDODRINE HCL 5 MG TABLET PO SCH ×4 (06:00→16:42)
[2020-08-18] MEDS: DICYCLOMINE HCL 10 MG CAP PO SCH ×4 (06:00→16:42)
[2020-08-18] MEDS: PIPERACILLIN/TAZOBAC 3.375 GM in SODIUM CHLORIDE 0.9% 50ML 50 ML IV SCH ×3 (06:00→22:17)
[2020-08-18 06:06] LABS: ANION GAP 7.5 mmol/L (8-16); BLOOD UREA NITROGEN 6 mg/dL (7-26); BUN/CREATININE RATIO 11 (6-25); CALCIUM 7.6 mg/dL (8.4-10.2); CARBON DIOXIDE 26 mmol/L (22-29); CHLORIDE 115 mmol/L (98-107); CREATININE, SERUM 0.56 mg/dL (0.57-1.11); EST GLOMERULAR FILTRATION RATE > 60 ML/MIN (60-); GLUCOSE 81 mg/dL (74-118); POTASSIUM 3.5 mmol/L (3.5-5.1); SODIUM 145 mmol/L (136-145)
[2020-08-18] MEDS: BALSAM PERU/CASTOR OIL 60 GM OINT...G. TP SCH (08:00)
[2020-08-18] MEDS: ASPIRIN 81 MG CHEW TAB PO SCH (08:00)
[2020-08-18] MEDS: PANTOPRAZOLE 40 MG 10ML VIAL IV SCH (08:00)
[2020-08-18] MEDS: MEGACE 400MG/ 10ML CUP PO SCH (08:00)
[2020-08-18] MEDS: LEVETIRACETAM 500MG/5ML VIAL 500 MG in SODIUM CHLORIDE 0.9% 100 ML 100 ML IV SCH ×2 (08:40→16:41)
[2020-08-18] MEDS ORDERED: COSYNTROPIN 0.25 MG/VIAL VIAL INJ NR (09:30)
[2020-08-18] MEDS: ENOXAPARIN SOD INJ 40 MG/0.4 ML SYR SC SCH (16:42)
[2020-08-19] VITALS (25 sets, daily range): BP systolic 65–104; BP diastolic 45–78
[2020-08-19 05:18] LABS: BASOPHILS % 0.4 % (0.0-1.0); EOSINOPHILS % 0.4 % (0.0-6.0); HEMATOCRIT 25.2 % (34.2-44.1); HEMOGLOBIN 8.6 g/dL (12.0-16.0); LYMPHOCYTES # (AUTO) 1.3 (1.0-3.2); MEAN CORPUSCULAR HEMOGLOBIN 30.6 pg (28-32); MEAN CORPUSCULAR HGB CONC 34.1 g/dL (31-35); MEAN CORPUSCULAR VOLUME 89.7 fL (81-99); MONOCYTES # (AUTO) 0.4 (0.2-0.8); MONOCYTES % 7.6 % (4.4-11.3); NEUTROPHILS % 64.4 % (38.7-80.0); PLATELET COUNT 159 x10e3/uL (140-360); RED BLOOD COUNT 2.81 x10e6/uL (3.6-5.1); RED CELL DISTRIBUTION WIDTH 18.4 % (11.7-14.4)
[2020-08-19 05:33] LABS: ANION GAP 9.4 mmol/L (8-16); BLOOD UREA NITROGEN 8 mg/dL (7-26); BUN/CREATININE RATIO 14 (6-25); CALCIUM 7.6 mg/dL (8.4-10.2); CARBON DIOXIDE 25 mmol/L (22-29); CHLORIDE 115 mmol/L (98-107); CREATININE, SERUM 0.58 mg/dL (0.57-1.11); EST GLOMERULAR FILTRATION RATE > 60 ML/MIN (60-); GLUCOSE 95 mg/dL (74-118); POTASSIUM 3.4 mmol/L (3.5-5.1); SODIUM 146 mmol/L (136-145)
[2020-08-19] MEDS: MIDODRINE HCL 5 MG TABLET PO SCH ×4 (06:00→17:50)
[2020-08-19] MEDS: DICYCLOMINE HCL 10 MG CAP PO SCH ×4 (06:00→17:49)
[2020-08-19] MEDS: METOCLOPRAMIDE HCL 10 MG/2ML VIAL IV SCH ×4 (06:00→17:49)
[2020-08-19] MEDS: PIPERACILLIN/TAZOBAC 3.375 GM in SODIUM CHLORIDE 0.9% 50ML 50 ML IV SCH (06:00)
[2020-08-19] MEDS: BALSAM PERU/CASTOR OIL 60 GM OINT...G. TP SCH (09:00)
[2020-08-19] MEDS: MEGACE 400MG/ 10ML CUP PO SCH (09:00)
[2020-08-19] MEDS: ASPIRIN 81 MG CHEW TAB PO SCH (09:00)
[2020-08-19] MEDS: LEVETIRACETAM 500MG/5ML VIAL 500 MG in SODIUM CHLORIDE 0.9% 100 ML 100 ML IV SCH ×2 (09:00→17:11)
[2020-08-19] MEDS: PANTOPRAZOLE 40 MG 10ML VIAL IV SCH (09:00)
[2020-08-19] MEDS: ENOXAPARIN SOD INJ 40 MG/0.4 ML SYR SC SCH (17:11)
[2020-08-20] VITALS (17 sets, daily range): BP systolic 90–112; BP diastolic 63–78
[2020-08-20] MEDS: MIDODRINE HCL 5 MG TABLET PO SCH ×4 (00:20→18:22)
[2020-08-20] MEDS: DICYCLOMINE HCL 10 MG CAP PO SCH ×4 (00:20→18:22)
[2020-08-20] MEDS: METOCLOPRAMIDE HCL 10 MG/2ML VIAL IV SCH ×4 (00:20→18:22)
[2020-08-20 04:41] LABS: BASOPHILS % 0.4 % (0.0-1.0); EOSINOPHILS # (AUTO) 0.1 (0.0-0.4); EOSINOPHILS % 2.2 % (0.0-6.0); HEMATOCRIT 23.6 % (34.2-44.1); LYMPHOCYTES # (AUTO) 1.5 (1.0-3.2); LYMPHOCYTES % 32.8 % (18.0-39.1); MEAN CORPUSCULAR HEMOGLOBIN 30.8 pg (28-32); MEAN CORPUSCULAR HGB CONC 33.9 g/dL (31-35); MEAN CORPUSCULAR VOLUME 90.8 fL (81-99); MONOCYTES # (AUTO) 0.4 (0.2-0.8); MONOCYTES % 7.5 % (4.4-11.3); NEUTROPHILS # (AUTO) 2.6 (2.1-6.9); NEUTROPHILS % 56.2 % (38.7-80.0); PLATELET COUNT 177 x10e3/uL (140-360); RED CELL DISTRIBUTION WIDTH 18.4 % (11.7-14.4)
[2020-08-20 05:09] LABS: ANION GAP 11.5 mmol/L (8-16); BLOOD UREA NITROGEN 11 mg/dL (7-26); BUN/CREATININE RATIO 20 (6-25); CALCIUM 7.5 mg/dL (8.4-10.2); CARBON DIOXIDE 24 mmol/L (22-29); CHLORIDE 114 mmol/L (98-107); CREATININE, SERUM 0.54 mg/dL (0.57-1.11); EST GLOMERULAR FILTRATION RATE > 60 ML/MIN (60-); GLUCOSE 106 mg/dL (74-118); POTASSIUM 3.5 mmol/L (3.5-5.1); SODIUM 146 mmol/L (136-145)
[2020-08-20] MEDS: ASPIRIN 81 MG CHEW TAB PO SCH (09:45)
[2020-08-20] MEDS: PANTOPRAZOLE 40 MG 10ML VIAL IV SCH (09:45)
[2020-08-20] MEDS: LEVETIRACETAM 500MG/5ML VIAL 500 MG in SODIUM CHLORIDE 0.9% 100 ML 100 ML IV SCH ×2 (09:45→18:26)
[2020-08-20] MEDS: BALSAM PERU/CASTOR OIL 60 GM OINT...G. TP SCH (10:16)
[2020-08-20] MEDS: ENOXAPARIN SOD INJ 40 MG/0.4 ML SYR SC SCH (18:22)
[2020-08-21] VITALS (14 sets, daily range): BP systolic 87–128; BP diastolic 62–76
[2020-08-21] MEDS: METOCLOPRAMIDE HCL 10 MG/2ML VIAL IV SCH ×3 (00:18→11:17)
[2020-08-21] MEDS: MIDODRINE HCL 5 MG TABLET PO SCH ×3 (00:18→11:17)
[2020-08-21] MEDS: DICYCLOMINE HCL 10 MG CAP PO SCH ×3 (00:18→11:17)
[2020-08-21] MEDS ORDERED: VANCOMYCIN 250MG/5ML ORAL SOLN ONE (00:42)
[2020-08-21 04:44] LABS: BASOPHILS % 0.4 % (0.0-1.0); EOSINOPHILS # (AUTO) 0.1 (0.0-0.4); HEMATOCRIT 22.2 % (34.2-44.1); HEMOGLOBIN 7.6 g/dL (12.0-16.0); LYMPHOCYTES # (AUTO) 1.7 (1.0-3.2); LYMPHOCYTES % 33.3 % (18.0-39.1); MEAN CORPUSCULAR HEMOGLOBIN 31.4 pg (28-32); MEAN CORPUSCULAR HGB CONC 34.2 g/dL (31-35); MEAN CORPUSCULAR VOLUME 91.7 fL (81-99); MONOCYTES # (AUTO) 0.4 (0.2-0.8); MONOCYTES % 7.8 % (4.4-11.3); NEUTROPHILS # (AUTO) 2.8 (2.1-6.9); NEUTROPHILS % 54.7 % (38.7-80.0); PLATELET COUNT 195 x10e3/uL (140-360); RED BLOOD COUNT 2.42 x10e6/uL (3.6-5.1); RED CELL DISTRIBUTION WIDTH 18.1 % (11.7-14.4)
[2020-08-21 05:04] LABS: ANION GAP 8.5 mmol/L (8-16); BLOOD UREA NITROGEN 12 mg/dL (7-26); BUN/CREATININE RATIO 26 (6-25); CALCIUM 7.3 mg/dL (8.4-10.2); CARBON DIOXIDE 25 mmol/L (22-29); CHLORIDE 113 mmol/L (98-107); CREATININE, SERUM 0.46 mg/dL (0.57-1.11); EST GLOMERULAR FILTRATION RATE > 60 ML/MIN (60-); GLUCOSE 69 mg/dL (74-118); POTASSIUM 3.5 mmol/L (3.5-5.1); SODIUM 143 mmol/L (136-145)
[2020-08-21] MEDS: PANTOPRAZOLE 40 MG 10ML VIAL IV SCH (08:09)
[2020-08-21] MEDS: ASPIRIN 81 MG CHEW TAB PO SCH (08:09)
[2020-08-21] MEDS: BALSAM PERU/CASTOR OIL 60 GM OINT...G. TP SCH (08:09)
[2020-08-21] MEDS: LEVETIRACETAM 500MG/5ML VIAL 500 MG in SODIUM CHLORIDE 0.9% 100 ML 100 ML IV SCH (08:12)
== END 2020-08-21 16:50 | disposition hospice, home (50) | DRG 853 ==
LOC: ER 16:16 → ERHOLD 21:40 → MED/SURG3 08-09 00:03 → IMCU 08-09 17:30 → ICU 08-09 21:10 → MED/SURG2 08-21 11:30
PROVIDERS: ADMIT Internal Medicine; ATTEND Internal Medicine
PROC: 02HV33Z Insertion of Infusion Device into Superior Vena Cava, Percutaneous Approach (ICD-10-PCS; principal; 2020-08-08)
PROC: 0FT44ZZ Resection of Gallbladder, Percutaneous Endoscopic Approach (ICD-10-PCS; 2020-08-12)
DX: A41.9 Sepsis, unspecified organism (principal); E43 Unspecified severe protein-calorie malnutrition; R65.21 Severe sepsis with septic shock; I63.9 Cerebral infarction, unspecified; Z68.1 Body mass index [BMI] 19.9 or less, adult; I69.354 Hemiplegia and hemiparesis following cerebral infarction affecting left non-dominant side; R64 Cachexia; E87.2 Acidosis; K80.11 Calculus of gallbladder with chronic cholecystitis with obstruction; K80.12 Calculus of gallbladder with acute and chronic cholecystitis without obstruction; E86.0 Dehydration; R62.7 Adult failure to thrive; K82.8 Other specified diseases of gallbladder; Z68.20 Body mass index [BMI] 20.0-20.9, adult; E87.6 Hypokalemia; R56.9 Unspecified convulsions; Z20.822 Contact with and (suspected) exposure to COVID-19
CPT/HCPCS: 36415; 36569; 70450; 70470; 70496; 70498; 71045; 74018; 74177; 74183; 74470; 80048; 80053; 80061; 81001; 82024; 82533; 82550; 82553; 82607; 82746; 82948; 83036; 83540; 83605; 83735; 83880; 84100; 84439; 84443; 84466; 84484; 85025; 86850; 86900; 86920; 87040; 87045; 87493; 88304; 93005; 93306; 93880; 93971; 99251; 99284; J0834; J1650; J1940; J2001; J2060; J2270; J2405; J2543; J2765; J3475; J3480; J7030; J7040; J7042; J7050; J7121; P9016; P9045; P9047; Q9967; U0002